=== PATIENT | female | born 2000 | race African-American/Black ===

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

== ENCOUNTER 2024-08-12 06:32 | Emergency (ER) | payer OTHER ==
--- OUTSIDE RECORDS SUMMARY | 2024-08-12 06:36 | XMS REPORT | Continuity of Care Document ---
Author Name Unknown Address [address] [facility] [address] [place] [address] [facility] Address [address] [facility] [address] [place] [address] Support Name Relationship Address Phone VENTURA CUELLAR [address] [place] [address] Unavailable DOROTHY CUELLAR Unknown [phone] Care Team Providers Care Client Relationship Consultant Name Role Phone PCP, PATIENT DOES NOT HAVE A Primary Care Physic tasha Unavailable UNKNOWN, ATTENDING Attending Clinician Unavailab HARVEY Contreras Attending Clinician Unavailable Jad Rene Attending Clinician [phone] Kiara Francois MD Attending Clinician [phone] Torrie Plasencia DO Attending Clinician [phone] Harvey Andrea MD Attending Clinician [phone] Doctor Unassigned, [place] Attending Clinician U MADHAVI Silva Attending Clinician Unavailabl e KELSEY ROBERSON Attending Clinician Unavail able Madhavi Cedeno Attending Clinician [phone] Lesvia Rowland LVN Attending Clinician [phone] SHANTANU GUILLORY Attending Clinician Unavailable Shantanu Guillory MD Attending Clinician [phone] Mil MASON MD, Terry Attending Clinician [phone] NIRU AYERS Attending Clinician Unavailable Niru Garcia Attending Clinician [phone] Kelsey Barajas Attending Clinician + Gavin Kessler DO Attending Clinician [phone] PRAVIN LLOYD Attending Clinician Valentine Osullivan Attending Clinician VALENTINE CUELLAR Attending Clinician Sylwia Costa [facility] Nurse Attending Clinician Schuyler Stuart RN, Shanta Attending Clinician UnavailTORRIE Mosley Admitting Clinician Unavailable Torrie Plasencia DO Admitting Clinician [phone] SHANTANU GUILLORY Admitting Clinician Unavailable Shantanu Guillory MD Admitting Clinician [phone] Payers Payer Name Policy Type Policy Number Effective Date Expirati on Date Source [employer] [id number] 2022 00:00:00 [employer] [id number] 2022 00:00:00 Problems Condition Name Condition Details Condition Category Status Onset Date Resolution Date Last Treatment Date Treating Clinician Comments Source Abdominal pain Abdominal pain Disease Active 10-30 00:00: 00 [facility] Obesity (BMI 30-39.9) Obesity (BMI 30-39.9) Disease Active 10-30 00:00: 00 [facility] Right hand pain Right hand pain Disease Active 07-26 00:00: 00 [facility] 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 Added automatic ally from request for surgery [id number] [facility] Other general counseling and advice for contracept brian management Other general counseling and advice for contracept brian management Disease Active 08-20 00:00: 00 [facility] Anemia, Anemia, Disease Active 08-31 00:00: 00 [facility] Family history of sickle cell anemia Family history of sickle cell anemia Disease Active 01-02 00:00: 00 [facility] Allergies, Adverse Reactions, Alerts Allergy Name Allergy Type Status Severity Reaction(s) Onset Date Inactive Date Treating Clinician Comments Source NO KNOWN ALLERGIE S Drug Class Active [facility] Social History Social Habit Start Date Stop Date Quantity Comments Source History of tobacco use Cigarette Smoker [facility] History SDOH Social Connections Get Together [facility] History SDOH Social Connections [facility] History SDOH Social Connections Membership [facility] History SDOH Social Connections Meetings [facility] Exposure to SARS-CoV-2 (event) 2022-10-20 00:00:00 2022-10-30 00:33:00 Not sure [facility] Alcohol intake 2022-10-30 00:00:00 2022-10-30 00:00:00 Current non-drinker of alcohol (finding) [facility] History SDOH Alcohol Frequency 2022-07-27 00:00:00 2022-07-27 00:00:00 3 [facility] History SDOH Alcohol Std Drinks 2022-07-27 00:00:00 2022-07-27 00:00:00 1 [facility] History SDOH Alcohol Binge 2022-07-27 00:00:00 2022-07-27 00:00:00 1 [facility] History SDOH Social Connections Phone 2022-07-27 00:00:00 2022-07-27 00:00:00 5 [facility] History SDOH Social Connections Living 2022-07-27 00:00:00 2022-07-27 00:00:00 7 [facility] History SDOH Physical Activity DPW 2022-07-27 00:00:00 2022-07-27 00:00:00 0 [facility] History SDOH Physical Activity MPS 2022-07-27 00:00:00 2022-07-27 00:00:00 0 [facility] History SDOH Financial 2022-07-27 00:00:00 2022-07-27 00:00:00 5 [facility] History SDOH Food Worry 2022-07-27 00:00:00 2022-07-27 00:00:00 1 [facility] History SDOH Food Scarcity 2022-07-27 00:00:00 2022-07-27 00:00:00 1 [facility] History SDOH Transport Med 2022-07-27 00:00:00 2022-07-27 00:00:00 2 [facility] History SDOH Transport Non-Med 2022-07-27 00:00:00 2022-07-27 00:00:00 2 [facility] Tobacco use and exposure 2022-07-27 00:00:00 2022-07-27 00:00:00 User of smokeless tobacco [facility] Sex Assigned At 2000 00:00:00 2000 00:00:00 [facility] Smoking Status Start Date Stop Date Source Smokes tobacco daily 2022-07-27 00:00:00 [facility] Never smoked tobacco [facility] Medications Ordered Medication Name Filled Medication Name Start Date Stop Date Current Medication? Ordering Clinician Indication Dosage Frequency Signature (SIG) Comments Components Source enoxaparin (LOVENOX) injection 40 mg 10-30 22:00: 00 Yes 40mg 40 mg, Subcutaneo us, DAILY, First dose on Mon10/30/22 at 1700, Until Discontinu ed, Routine [facility] piperacilli n-tazobacta m (ZOSYN) 3.375 g in NaCl 0.9% (NS) 100 mL MINI-BAG 10-30 17:15: 00 11-04 17:14 :00 No 3.375g 3.375 g, IV Piggyback, Q8H ABX, 15 doses, First dose on Mon10/30/22 at 1215, Last dose on Mon11/04/22 at 0415, Administer over 4 Hours, 100 mL
Reas on for Anti-Infec tive: Documented Infection& lt;br>Docu mented Infection Site: Abdominal< br>Duratio n of Therapy: 7 days [facility] piperacilli n-tazobacta m (ZOSYN) 3.375 g in NaCl 0.9% (NS) 100 mL MINI-BAG 10-30 09:30: 00 10-30 09:18 :00 No 3.375g 3.375 g, IV Piggyback, ONCE, 1 dose, On Mon10/30/22 at 0430, Administer over 30 Minutes, 100 mL
Reas on for Anti-Infec tive: Documented Infection< br>Documen clay Infection Site: Abdominal< br>Duratio n of Therapy: 7 days [facility] lactated ringers IV infusion 1,000 mL 10-30 08:45: 00 Yes 1000mL at 125 mL/hr, 1,000 mL, IV Infusion, CONTINUOUS , Starting on Mon10/30/22 at 0345, Until Discontinu ed, Routine [facility] ondansetron (ZOFRAN (PF)) injection 4 mg 10-30 08:34: 10 Yes 4mg 4 mg, Slow IV Push, Q6HPRN, Starting on Mon10/30/22 at 0334, Until Discontinu ed, Routine, Nausea and Vomiting (N/V) [facility] morpHINE (4 mg/mL) injection 4 mg 10-30 08:34: 07 10-31 08:33 :07 No 4mg 4 mg, Slow IV Push, Q4HPRN, Starting on Mon10/30/22 at 0334, Until 10/31/22 at 0333, Routine, Pain (scale 7-10) [facility] iopamidol (ISOVUE 370-500 mL) injection 100 mL 10-30 08:15: 00 10-30 08:15 :00 No [id number] 100mL 100 mL, Intravenou s, ONCE, 1 dose, On Mon10/30/22 at 0315, Routine [facility] NaCl 0.9% (NS) bolus infusion 1,000 mL 10-30 07:30: 00 10-30 08:57 :00 No 1000mL at 999 mL/hr, 1,000 mL, IV Infusion, ONCE, 1 dose, On Mon10/30/22 at 0230, STAT [facility] acetaminoph en (TYLENOL) tablet 650 mg 10-30 06:30: 00 10-30 06:25 :00 No 650mg 650 mg, Oral, ONCE, 1 dose, On Mon10/30/22 at 0130, GIOVANNI [facility] No known medications 1- 09:51: 45 No No known medication s [facility] amoxicillin -clavulanat e (AUGMENTIN) 875-125 mg per tablet 1 tablet 07-27 23:00: 00 08-06 13:59 :00 No 1{tbl} 1 tablet, Oral, Q12H, 20 doses, First dose on Mon07/27/22 at 1700, Last dose on Mon08/05/22 at 2000, Routine
Reason for Anti-Infec tive: Documented Infection< br>Documen clay Infection Site: Skin / Soft Tissue
Duration of Therapy: 10 days [facility] bupivacaine (preserv free) (SENSORCAIN E MPF) 0.25 % (2.5 mg/mL) injection 07-27 20:11: 00 07-27 21:08 :33 No PRN, Starting on Mon07/27/22 at 1411, Until Mon07/27/22 at 1508, Routine, Intra-op [facility] HYDROcodone -acetaminop hen (NORCO) 10-325 mg tablet 1 tablet 07-27 14:59: 06 Yes 1{tbl} 1 tablet, Oral, Q6HPRN, Starting on Mon07/27/22 at 0859, Until Discontinu ed, Routine, Pain (scale 7-10) [facility] ampicillin- sulbactam (UNASYN) 3 g in NaCl 0.9% (NS) 100 mL MINI-BAG 07-27 11:15: 00 07-27 20:49 :42 No 3g 3 g, IV Piggyback, Q6H ABX, 3 doses, First dose (after last modificati on) on Mon07/27/22 at 0515, Last dose on Mon07/27/22 at 1715, Administer over 30 Minutes, 100 mL
Reas on for Anti-Infec tive: Empiric Therapy for Suspected Infection< br>Empiric Therapy Site: Skin / Soft tissue
Duration of therapy: 72 hours [facility] morpHINE (4 mg/mL) injection 4 mg 07-27 04:03: 34 Yes 4mg 4 mg, Slow IV Push, Q4HPRN, Starting on Mon07/26/22 at 2203, Until Discontinu ed, Routine, For pain unrelieved by oral medication s, or if patient is unable to tolerate oral pain medication . [facility] traMADoL (ULTRAM) tablet 50 mg 07-27 04:03: 29 Yes 50mg 50 mg, Oral, Q6HPRN, Starting on Mon07/26/22 at 3, Until Discontinu ed, Routine, Pain (scale 4-6) [facility] acetaminoph en (TYLENOL) tablet 650 mg 07-27 04:03: 27 Yes 650mg 650 mg, Oral, Q6HPRN, Starting on Mon07/26/22 at 2202, Until Discontinu ed, Routine, Pain (scale 1-3), Pain Scale 1-3 Or Headache [facility] piperacilli n-tazobacta m (ZOSYN) 3.375 g in NaCl 0.9% (NS) 50 mL MINI-BAG 07-27 01:30: 00 07-27 01:40 :00 No 3.375g 3.375 g, IV Piggyback, ONCE, 1 dose, On Mon07/26/22 at 1930, Administer over 30 Minutes, 50 mL
Reas on for Anti-Infec tive: Documented Infection< br>Documen clay Infection Site: Skin / Soft Tissue
Duration of Therapy: Other (see Comments) [facility] HYDROcodone -acetaminop hen (NORCO 5) 5-325 mg tablet 1 tablet 07-27 01:30: 00 07-27 01:27 :00 No 1{tbl} 1 tablet, Oral, ONCE, 1 dose, On Mon07/26/22 at 1930, GIOVANNI [facility] amoxicillin -clavulanat e 875-125 mg per tablet 07-27 00:00: 00 08-07 05:59 :00 No [id number] 1{tbl} Take 1 tablet by mouth every 12 (twelve) hours for 10 days. [facility] traMADoL 50 mg tablet 07-27 00:00: 00 08-02 05:59 :00 No [id number] 50mg Take 1 tablet by mouth every 6 (six) hours as needed for Pain (scale 4-6) for up to 5 days. Indication s: acute pain [facility] HYDROcodone -acetaminop hen 10-325 mg tablet - 00:00: 00 07-31 05:59 :00 No [id number] 1{tbl} Take 1 tablet by mouth every 6 (six) hours as needed for Pain (scale 7-10) for up to 3 days. Indication s: acute pain [facility] ondansetron (ZOFRAN) 4 mg tablet 07-27 00:00: 00 07-31 05:59 :00 No [id number] 4mg Take 1 tablet by mouth every 6 (six) hours for 3 days. [facility] No known medications 07-26 13:36: 04 No No known medication s [facility] norelgestro min-ethinyl estradiol (XULANE) 150-35 mcg/24 hr patch 3-19 00:00: 00 08-20 00:00 :00 No [id number] 1{patch } Apply 1 Patch to skin weekly. [facility] Vital Signs Vital Name Observation Time Observation Value Comments S ource Systolic blood pressure 2022-10-30 12:32:00 122 mm[Hg] [facility] Diastolic blood pressure 2022-10-30 12:32:00 66 mm[Hg] [facility] Heart rate 2022-10-30 12:32:00 97 /min [facility] Body temperature 2022-10-30 12:32:00 36.67 Cristy [facility] Respiratory rate 2022-10-30 12:32:00 18 /min [facility] Oxygen saturation in Arterial blood by Pulse oximetry 2022-10-30 12:32:00 98 /min [facility] Body height 2022-10-30 09:09:00 160 cm [facility] Body weight 2022-10-30 09:09:00 79.47 kg [facility] BMI 2022-10-30 09:09:00 31.04 kg/m2 [facility] Body temperature 2022-08-11 15:50:00 36.17 Crsity [facility] Body height 2022-08-11 15:50:00 154.9 cm [facility] Body weight 2022-08-11 15:50:00 76.159 kg [facility] BMI 2022-08-11 15:50:00 31.72 kg/m2 [facility] Systolic blood pressure 2022-07-28 13:00:00 110 mm[Hg] [facility] Diastolic blood pressure 2022-07-28 13:00:00 55 mm[Hg] [facility] Heart rate 2022-07-28 13:00:00 98 /min [facility] Body temperature 2022-07-28 13:00:00 36.78 Cristy [facility] Respiratory rate 2022-07-28 13:00:00 18 /min [facility] Oxygen saturation in Arterial blood by Pulse oximetry 2022-07-28 13:00:00 100 /min [facility] Body height 2022-07-27 11:28:00 162.6 cm [facility] Body weight 2022-07-27 11:28:00 77.6 kg [facility] BMI 2022-07-27 11:28:00 29.35 kg/m2 [facility] Systolic blood pressure 2022-07-27 17:36:00 109 mm[Hg] [facility] Diastolic blood pressure 2022-07-27 17:36:00 68 mm[Hg] [facility] Heart rate 2022-07-27 17:36:00 83 /min [facility] Body temperature 2022-07-27 17:36:00 36.28 Cristy [facility] Respiratory rate 2022-07-27 17:36:00 21 /min [facility] Oxygen saturation in Arterial blood by Pulse oximetry 2022-07-27 17:36:00 99 /min [facility] Body height 2022-07-27 11:28:00 162.6 cm [facility] Body weight 2022-07-27 11:28:00 77.6 kg [facility] BMI 2022-07-27 11:28:00 29.35 kg/m2 [facility] Systolic blood pressure 2022-07-27 01:09:00 118 mm[Hg] [facility] Diastolic blood pressure 2022-07-27 01:09:00 73 mm[Hg] [facility] Heart rate 2022-07-27 01:09:00 91 /[facility] 2022-07-27 01:09:00 37.5 Cristy [facility] Respiratory rate 2022-07-27 01:09:00 18 /min [facility] Oxygen saturation in Arterial blood by Pulse oximetry 2022-07-27 01:09:00 100 /min [facility] Body height 2022-07-26 19:30:00 162.6 cm [facility] Body weight 2022-07-26 19:30:00 77.565 kg [facility] BMI 2022-07-26 19:30:00 29.35 kg/m2 [facility] Systolic blood pressure 2021-08-20 19:06:00 105 mm[Hg] [facility] Diastolic blood pressure 2021-08-20 19:06:00 60 mm[Hg] [facility] Heart rate 2021-08-20 19:06:00 69 /min [facility] Body temperature 2021-08-20 19:06:00 36.17 Cristy [facility] Respiratory rate 2021-08-20 19:06:00 16 /min [facility] Body height 2021-08-20 19:06:00 160 cm [facility] Body weight 2021-08-20 19:06:00 77.764 kg [facility] BMI 2021-08-20 19:06:00 30.37 kg/m2 [facility] Procedures Procedure Date / Time Performed Performing Clinician Source CONSENT/REFUSAL FOR DIAGNOSIS AND TREATMENT 2022-10-30 15:05:28 Doctor Unassigned, [place] [facility] CT ABDOMEN PELVIS W CONTRAST 2022-10-30 07:28:39 Jad Murillo [facility] LIPASE 2022-10-30 05:59:00 Jad Murillo [facility] COMP. METABOLIC PANEL ([id number]) 2022-10-30 05:59:00 Jad Murillo [facility] CBC WITH DIFF 2022-10-30 05:59:00 Jad Murillo [facility] URINALYSIS 2022-10-30 05:59:00 Jad Murillo [facility] POCT TEST 2022-10-30 05:58:00 Jad Murillo [facility] NOTICE OF PRIVACY PRACTICES 2022-10-30 05:24:11 Doctor Unassigned, [place] [facility] CONSENT/REFUSAL FOR DIAGNOSIS AND TREATMENT 2022-10-30 05:23:29 Doctor Unassigned, [place] [facility] AUTHORIZATION FOR RELEASE OF PHI 2022-10-14 05:01:00 Doctor Unassigned, [place] [facility] HAND DEBRIDEMENT 2022-07-27 18:59:00 Shantanu Guillory [facility] HAND DEBRIDEMENT 2022-07-27 18:59:00 Shantanu Guillory [facility] POCT TEST 2022-07-27 18:50:00 Braxton Ruiz [facility] POCT TEST 2022-07-27 18:50:00 Braxton Ruiz [facility] CREATININE 2022-07-27 05:48:00 Terry Jaeger [facility] CREATININE 2022-07-27 05:48:00 Terry Jaeger [facility] XR HAND 3+ VW RIGHT 2022-07-26 19:51:48 Niru Ayers [facility] Encounters Start Date/Time End Date/Time Encounter Type Admission Type Attending [facility] Care Department Encounter ID Source 2023-11-08 15:00:00 2023-11-08 15:00:00 Outpatient R UNKNOWN, ATTENDING [facility] [id number] [facility] 2022-12-08 15:37:57 2022-12-08 15:37:57 Outpatient [facility] [id number] Marcellus Ivy 2022-12-06 15:11:04 2022-12-06 15:11:04 Outpatient [facility] [id number] Marcellus Ivy 2022-10-30 00:24:00 2022-10-30 08:55:00 Outpatient HARVEY MERRILL [facility] [id number] [facility] 2022-10-30 00:24:00 2022-10-30 08:55:00 Emergency Lidia, Jad Francois, Kiara Plasencia, Harvey Menard [facility] 1..840.114 350.1.13.10 4.2.7.2.686 [id number] [facility] 2022-10-14 00:00:00 2022-10-14 00:00:00 Orders Only Doctor Unassigned, [place] [facility] 1..840.114 350.1.13.10 4.2.7.2.686 [id number] [facility] 2022-08-25 09:20:00 2022-08-25 09:20:00 Outpatient MADHAVI TRUONG [facility] [id number] [facility] 2022-08-22 13:15:00 2022-08-22 13:15:00 Outpatient R KELSEY ROBERSON [facility] [id number] [facility] 2022-08-22 13:15:00 2022-08-22 13:15:00 Outpatient R AKINKELSEY REDDY [facility] [id number] [facility] 2022-08-18 08:00:00 2022-08-18 08:00:00 Outpatient R [facility] [id number] [facility] 2022-08-11 09:20:00 2022-08-11 10:58:12 Outpatient MADHAVI TRUONG [facility] [id number] [facility] 2022-08-11 09:20:00 2022-08-11 10:58:12 Office Visit Lees, Madhavi [facility] 1.2.840.114 350.1.13.10 4.2.7.2.686 [id number] [facility] 2022-07-29 00:00:00 2022-07-29 00:00:00 Transition of Care Lesvia Rowland 1.2.840.114 350.1.13.10 4.2.7.2.686 [id number] [facility] 2022-07-26 20:53:00 2022-07-28 14:02:00 Inpatient X SHANTANU GUILLORY [facility] SOR [id number] [facility] 2022-07-26 20:53:00 2022-07-28 14:02:00 [facility] 1.2.840.114 350.1.13.10 4.2.7.2.686 [id number] [facility] 2022-07-27 11:18:00 2022-07-27 13:27:00 Surgery Shantanu Guillory [facility] 1.2.840.114 350.1.13.10 4.2.7.2.686 [id number] [facility] 2022-07-26 13:31:00 2022-07-26 19:39:00 Emergency X NIRU AYERS [facility] ERT [id number] [facility] 2022-07-26 13:31:00 2022-07-26 19:39:00 Emergency Niru Ayers S [facility] 1.2.840.114 350.1.13.10 4.2.7.2.686 [id number] [facility] 2021-08-20 12:45:00 2021-08-20 13:56:34 Outpatient R LIZZETTE ROBERSONILOLA [facility] [id number] [facility] 2021-08-20 12:45:00 2021-08-20 13:56:34 Office Visit Amada Kelsey C [facility] 1..840.114 350.1.13.10 4.2.7.2.686 [id number] [facility] 2021-08-20 12:45:00 2021-08-20 13:56:34 Outpatient R KELSEY ROBERSON [facility] [id number] [facility] 2021-08-20 00:00:00 2021-08-20 00:00:00 Orders Only Doctor Unassigned, [place] [facility] 1.840.114 350.1.13.10 4.2.7.2.686 [id number] [facility] 2020-10-13 00:00:00 2020-10-13 00:00:00 Patient Outreach Gavin Kessler [facility] 1.840.114 350.1.13.10 4.2.7.2.686 [id number] [facility] 2020-05-05 08:30:00 2020-05-05 08:30:00 Outpatient R PRAVIN LLOYD [facility] [id number] [facility] 2020-02-12 00:00:00 2020-02-12 00:00:00 Letter (Out) Valentine Cuellar [facility] 1.840.114 350.1.13.10 4.2.7.2.686 [id number] [facility] 2020-02-10 11:45:00 2020-02-10 11:45:00 Outpatient R VALENTINE CUELLAR [facility] [id number] [facility] 2020-02-10 11:45:00 2020-02-10 11:45:00 Outpatient R ALISA VALENTINE [facility] [id number] [facility] 2020-02-10 11:45:00 2020-02-10 11:45:00 Outpatient R VALENTINE CUELLAR [facility] [id number] [facility] 2020-01-16 15:00:00 2020-01-16 15:00:00 Outpatient R ALISA VALENTINE [facility] [id number] [facility] 2020-01-10 13:15:00 2020-01-10 13:15:00 Outpatient R KELSEY ROBERSON [facility] [id number] [facility] 2019-10-10 13:38:58 2019-10-14 10:05:09 Office Visit Valentine Cuellar [facility] 1..114 350.1.13.10 4.2.7.2.686 [id number] [facility] 2019-10-10 13:45:00 2019-10-10 13:45:00 Outpatient R ALISA VALENTINE [facility] [id number] [facility] 2019-10-10 00:00:00 2019-10-10 00:00:00 Orders Only Doctor Unassigned, [place] [facility] 1.114 350.1.13.10 4.2.7.2.686 [id number] [facility] 2019-03-11 15:13:39 2019-03-11 15:27:14 Nurse Visit Visit, Ang-Rmchp Nurse Valentine Cuellar [facility] 1..114 350.1.13.10 4.2.7.2.686 [id number] [facility] 2019-02-28 00:00:00 2019-02-28 00:00:00 Telephone Valentine Cuellar [facility] 1..114 350.1.13.10 4.2.7.2.686 [id number] [facility] 2019-02-18 00:00:00 2019-02-18 00:00:00 Nurse Triage Shanta Stuart [facility] 1.2.840.114 350.1.13.10 4.2.7.2.686 [id number] [facility] Results Test Description Test Time Test Comments Results Result Co mments Source [facility] [id number] 19:05:00* Test Item Value Reference Range Interpretation Comme nts POCT PREG (test code = 1605) Negative On board controls acceptable with C Line (test code = 3574) Yes POCT PREG LOT # (test code = 3575) [id number] POCT PREG TEST DATE ( test code = 3576) 10/22/23 Lab Interpretation (test cod e = [id number]) Normal [facility] [id number] 19:05:00* Test Item Value Reference Range Interpretation Comme nts POCT PREG (test code = 1605) Negative On board controls acceptable with C Line (test code = 3574) Yes POCT PREG LOT # (test code = 3575) [id number] POCT PREG TEST DATE ( test code = 3576) 10/22/23 Lab Interpretation (test cod e = 37823-5) [facility] Test Item Value Reference Range Interpretation Comme [facility] CREATININE (test code = 8422859233) 0.65 mg/dL 0.50-1.04 eGFR (test code = 5326761035) mL/min/1.73m2 PARISH (test code = PARISH) Association of Glomerular Filtration Rate (GFR) and Staging of Kidney Disease* + + +- +| GFR (mL/min/1.73 m2) ?| With Kidney Damage ?| ?Without Kidney Damage+ ------+ ----+ ------+| ?>90 ?| ?Stage one ?| ? Normal ?+ -+ + -+| ?60-89 ?| ?Stage two ?| ? Decreased GFR ? + + +- +| ?30-59 ?| ?Stage three ?| ? Stage three ? + + +- +| ?15-29 ?| ?Stage four ? | ? Stage four ?+ -+ + -+| ?<15 (or dialysis) ? ?| ?Stage five ? | ? Stage five ?+ -+ + -+ *Each stage assumes the associated GFR level has been in effect for at least three months. ?Stages 1 to 5, with or without kidney disease, indicate chronic kidney disease. Notes: Determination of stages one and two (with eGFR >59mL/min/1.73 m2) requires estimation of kidney damage for at least three months as defined by structural or functional abnormalities of the kidney, manifested by either:Pathological abnormalities or Markers of kidney damage (including abnormalities in the composition of the blood or urine or abnormalities in imaging tests). [facility]2023-01-04 06:21:42* Test Item Value Reference Range Interpretation Comme nts CREATININE (test code = 2574722782) 0.65 mg/dL 0.50-1.04 eGFR (test code = 2356382851) mL/min/1.73m2 PARISH (test code = PARISH) Association of Glomerular Filtration Rate (GFR) and Staging of Kidney Disease* + + +- +| GFR (mL/min/1.73 m2) ?| With Kidney Damage ?| ?Without Kidney Damage+ ------+ ----+ ------+| ?>90 ?| ?Stage one ?| ? Normal ?+ -+ + -+| ?60-89 ?| ?Stage two ?| ? Decreased GFR ? + + +- +| ?30-59 ?| ?Stage three ?| ? Stage three ? + + +- +| ?15-29 ?| ?Stage four ? | ? Stage four ?+ -+ + -+| ?<15 (or dialysis) ? ?| ?Stage five ? | ? Stage five ?+ -+ + -+ *Each stage assumes the associated GFR level has been in effect for at least three months. ?Stages 1 to 5, with or without kidney disease, indicate chronic kidney disease. Notes: Determination of stages one and two (with eGFR >59mL/min/1.73 m2) requires estimation of kidney damage for at least three months as defined by structural or functional abnormalities of the kidney, manifested by either:Pathological abnormalities or Markers of kidney damage (including abnormalities in the composition of the blood or urine or abnormalities in imaging tests). [facility]"
[2024-08-12 07:06] LABS: Absolute Basophils 0.1 K/uL (0-0.5); Absolute Eosinophils 0.1 K/uL (0-0.5); Absolute Lymphocytes (CBC) 2.3 K/uL (0.7-4.9); Absolute Monocytes 0.5 K/uL (0.1-1.3); Absolute Neutrophil 2.5 K/uL (1.8-8.0); Basophils % 1.2 % (0-1.3); Eosinophils % 2.4 % (0-4.4); Hematocrit 34.6 % (36.0-45.0); Hemoglobin 11.6 g/dL (12.0-15.0); Lymphocytes % 42.2 % (15.3-44.8); MCH 30.5 pg (27.0-35.0); MCHC 33.5 g/dL (32.0-36.0); MCV 91.1 fL (80-100); MPV 8.2 fL (7.6-11.3); Monocytes % 9.5 % (3.3-12.3); Neutrophils % 44.7 % (41.7-73.7); Nucleated Red Blood Cells % 0.1 % (0-0); Platelets 386 thou/uL (152-406)
[2024-08-12 07:24] LABS: Anion Gap 9.1 mEq/L (5.0-15.0); Potassium 3.1 mEq/L (3.5-5.1)
[2024-08-12 07:52] LABS: Specific Gravity 1.024 (1.005-1.030)
[2024-08-12 07:55] LABS: Specific Gravity 1.024 (1.005-1.030); Sqamous Epithelial <5 /HPF (None Seen); Transitional Epithelial <5 /HPF (None Seen); Urine Bacteria <20 /HPF (<20); Urine Bilirubin NEGATIVE (Negative); Urine Blood 3+ (Negative); Urine Clarity Turbid (Clear); Urine Color Light-Yellow (Yellow); Urine Culture Reflex Order NOT NEEDED; Urine Glucose NEGATIVE (Negative); Urine Ketones NEGATIVE (Negative); Urine Microscopic Reflex YN ORDER UMIC; Urine Mucus Slight /HPF (None Seen); Urine Nitrite NEGATIVE (Negative); Urine Protein NEGATIVE (Negative); Urine Urobilinogen 1+ (Normal); Urine WBC <5 /HPF (<5)
--- NOTE | 2024-08-12 08:32 | RAD REPORT ---
EXAMINATION: Transvaginal OB COMPARISON: None. HISTORY: TECHNIQUE: Real-time ultrasound was performed through the pelvis. A transvaginal scan was performed t o better visualize the intrauterine contents and adnexa. FINDINGS: The uterus is normal in size. Endometrium is thickened measuring 19 mm with no evidence of a gestatio nal sac seen. The right ovary measures 5.1 x 3.9 x 3.8 cm. Hemorrhagic cyst is present. Left ovary measures 2.8 x 1 .7 x 1.2 cm. IMPRESSION: Thickened endometrial stripe is present without gestational sac evident. This can still represent ear ly IUP. In the setting of a positive hCG level, this would indicate of unknown location. Serial hCG level measurements and follow-up pelvic sonography in 7-10 days would be recommended.
--- NOTE | 2024-08-12 09:06 | EDPHYS ---
Physician Documentation [facility] Name: Abdiel Allred Age: 24 yrs Sex: Female : 2000 Arrival Date: 08/12/2024 Time: 06:32 Bed 7 Private MD: ED Physician Rony Miller HPI: 08/12 07:30 This 24 yrs old Black Female presents to ER via Ambulatory with complaints of Vaginal rn Bleeding, Abdominal Cramping, PT states she is . 07:30 The patient presents with vaginal bleeding that is. Onset: The symptoms/episode rn began/occurred 5 day(s) ago. Modifying factors: The symptoms are alleviated by nothing, the symptoms are aggravated by nothing. Associated signs and symptoms: Pertinent positives: cramping, vaginal bleeding, Pertinent negatives: fever, hematuria, urinary frequency, vaginal discharge. Severity of symptoms: At their worst the symptoms were moderate, in the emergency department the symptoms have improved. The patient has not experienced similar symptoms in the past. Patient reports she did not know she was , last Monday started with lower abdominal cramping and heavy vaginal bleeding with clots. Thinks she passed a different appearing solid mass. Abdominal cramping has improved since that day but still cramping. No urinary symptoms. No fever or chills. Patient has only been once before and believes her blood type is AB+. Denies trauma. 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 - Infectious Disease History:: Denies. - Social history:: Smoking status: Reported history of juuling and/or vaping. - Family history:: not pertinent. - Hospitalizations: : No recent hospitalization is reported. ROS: 07:30 Constitutional: Negative for fever, chills, and weight loss, Cardiovascular: Negative rn for chest pain, palpitations, and edema, Respiratory: Negative for shortness of breath, cough, wheezing, and pleuritic chest pain, Abdomen/GI: Positive for lower abdominal cramping Back: Negative for injury and pain, : Positive for vaginal bleeding MS/Extremity: Negative for injury and deformity, Skin: Negative for injury, rash, and discoloration, Neuro: Negative for headache, weakness, numbness, tingling, and seizure, Exam: 07:30 Constitutional: This is a well developed, well nourished patient who is awake, alert, rn and in no acute distress. Cardiovascular: Regular rate and rhythm. No pulse deficits. Respiratory: No increased work of breathing, no retractions or nasal flaring. Abdomen/GI: Soft, nontender Neuro: Awake and alert, GCS 15 Vital Signs: 06:39 BP 145 / 81; Pulse 88; Resp 18 S; Pulse Ox 100% on R/A; Weight 66.22 kg; Height 4 ft. ha1 11 in. ; 07:30 Temp 97.5(TE); iw 08:26 BP 97 / 55; Pulse 81; Resp 16; Pulse Ox 100% ; Pain 4/10; ll1 08:40 BP 104 / 46; Pulse 69; ll1 09:15 BP 105 / 59; Pulse 70; Resp 16; Pulse Ox 100% on R/A; ll1 06:39 Body Mass Index 29.49 (66.22 kg, 149.86 cm) ha1 08:26 Pain Scale: Adult ll1 MDM: 06:48 Medical Screening Exam initiated sp4 09:03 Differential diagnosis: nonspecific abdominal pain, ovarian cyst, urinary tract rn infection. Data reviewed: vital signs, nurses notes, lab test result(s), radiologic studies, ultrasound, and as a result, I will discharge patient. Counseling: I had a detailed discussion with the patient and/or guardian regarding the historical points, exam findings, and any diagnostic results supporting the discharge/admit diagnosis, lab results, radiology results, the need for outpatient follow up, to return to the emergency department if symptoms worsen or persist or if there are any questions or concerns that arise at home. Response to treatment: the patient's symptoms have markedly improved after treatment, and as a result, I will discharge patient. Special discussion: I discussed with the patient/guardian in detail that at this point there is no indication for admission to the hospital. It is understood, however, that if the symptoms persist or worsen the patient needs to return immediately for re-evaluation. ED course: Patient improved, diminished abdominal cramping as well as vaginal bleeding. Patient is 5 days into this. Ultrasound shows thickened endometrium but no intrauterine identified. Also no evidence of ectopic identified. Beta-hCG is 5000 but patient states past a tissue colored mass in the midst of her blood clots, likely miscarriage at that time and hCG likely on its way down. Not having any abdominal tenderness at this time. Will discharge home with return precautions. Blood type is Rh+, does not need RhoGAM. 08/12 06:47 Order name: Abo/rh Typing; Complete Time: 09:03 sp4 08/12 06:47 Order name: Basic Metabolic Panel; Complete Time: 08:24 sp4 08/12 06:47 Order name: CBC with Diff; Complete Time: 08:24 sp4 08/12 06:47 Order name: Test, Urine; Complete Time: 08:24 sp4 08/12 06:47 Order name: Urinalysis w/ reflexes; Complete Time: 08:24 sp4 08/12 06:48 Order name: HCG-Quantitative; Complete Time: 08:24 sp4 08/12 07:23 Order name: Transvaginal OB; Complete Time: 08:38 EDMS 08/12 06:47 Order name: IV Saline Lock; Complete Time: 06:58 sp4 08/12 06:47 Order name: Labs collected and sent; Complete Time: 07:02 sp4 08/12 06:47 Order name: NPO; Complete Time: 07:02 sp4 Administered Medications: No medications were administered Disposition Summary: 08/12/24 09:05 Discharge Ordered Notes: Location: Home rn Problem: new rn Symptoms: have improved rn Condition: Stable rn Diagnosis - Threatened rn - Abnormal uterine and vaginal bleeding, unspecified rn Followup: rn - With: Private Physician - When: As needed - Reason: Recheck today's complaints, Re-evaluation by your physician Discharge Instructions: - Discharge Summary Sheet rn - Abnormal Uterine Bleeding rn - Threatened Miscarriage rn - Vaginal Bleeding During , First Trimester rn Forms: - Medication Reconciliation Form rn - Antibiotic kiln burner - Prescription Opioid Use rn - Patient Portal Instructions rn - Leadership Thank You Letter rn - Work release form ll1 Signatures: Dispatcher [employer] Rony Cifuentes MD MD rn Ayala, Heidy, RN RN ha1 Juan J Ho MD MD sp4 Corrections: (The following items were deleted from the chart) 07:23 06:48 OB Limited+US.RAD.BRZ ordered. EDMS EDMS
--- NOTE | 2024-08-12 09:06 | ER ---
Nurse's Notes [facility] Name: Abdiel Allred Age: 24 yrs Sex: Female : 2000 Arrival Date: 08/12/2024 Time: 06:32 Bed 7 Private MD: Diagnosis: Threatened ;Abnormal uterine and vaginal bleeding, unspecified Presentation: 08/12 06:39 Chief complaint: Patient states: POSSIBLE MISCARRIAGE, VAGINAL BLEEDING, AND CRAMPING. ha1 06:39 Coronavirus screen: Client denies travel out of the [place] in the last 14 days. Ebola ha1 Screen: Patient negative for fever greater than or equal to 101.5 degrees Fahrenheit, and additional compatible Ebola Virus Disease symptoms. Initial Sepsis Screen: Does the patient meet any 2 criteria? No. Patient's initial sepsis screen is negative. Does the patient have a suspected source of infection? No. Patient's initial sepsis screen is negative. Risk Assessment: Do you want to hurt yourself or someone else? Patient reports no desire to harm self or others. Onset of symptoms was August 12, 2024. 06:39 Method Of Arrival: Ambulatory ha1 06:39 Acuity: BELA 3 ha1 Triage Assessment: 06:39 General: Appears uncomfortable, Behavior is calm, cooperative. Pain: Complains of pain ha1 in pelvis Pain does not radiate. Pain currently is 8 out of 10 on a pain scale. Quality of pain is described as crampy. Neuro: Level of Consciousness is awake, alert, obeys commands, Oriented to person, place, time, situation. Cardiovascular: Capillary refill < 3 seconds Patient's skin is warm and dry. Respiratory: Airway is patent Respiratory effort is even, unlabored, Respiratory pattern is regular, symmetrical. GI: Abdomen is flat, non-distended, obese, Reports lower abdominal pain. : Reports cramping, vaginal bleeding that is with clots, moderate flow. Derm: Skin is pink, warm \T\ dry. Musculoskeletal: Circulation, motion, and sensation intact. Range of motion: intact in all extremities. 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 - Infectious Disease History:: Denies. - Social history:: Smoking status: Reported history of juuling and/or vaping. - Family history:: not pertinent. - Hospitalizations: : No recent hospitalization is reported. Screenin:39 [facility] ED Fall Risk Assessment (Adult) History of falling in the last 3 months, ha1 including since admission No falls in past 3 months (0 pts) Confusion or Disorientation No (0 pts) Intoxicated or Sedated No (0 pts) Impaired Gait No (0 pts) Mobility Assist Device Used No (0 pt) Altered Elimination No (0 pt) Score/Fall Risk Level 0 - 2 = Low Risk Oriented to surroundings, Maintained a safe environment, Educated pt \T\ family on fall prevention, incl call for assistance when getting out of bed, Hourly rounding (assess needs \T\ fall precautionary measures) done. Abuse screen: Denies threats or abuse. Denies injuries from another. Nutritional screening: No deficits noted. Tuberculosis screening: No symptoms or risk factors identified. Assessment: 07:30 General: Appears uncomfortable, Behavior is calm, cooperative, appropriate for age. ll1 Pain: Complains of pain in pelvis Quality of pain is described as aching, crampy. Neuro: No deficits noted. : Reports cramping, pain vaginal bleeding that is with clots, moderate flow. 08:26 Reassessment: No changes from previously documented assessment. Patient and/or family ll1 updated on plan of care and expected duration. Pain level reassessed. Patient is alert, oriented x 3, equal unlabored respirations, skin warm/dry/pink. Vital Signs: 06:39 BP 145 / 81; Pulse 88; Resp 18 S; Pulse Ox 100% on R/A; Weight 66.22 kg; Height 4 ft. ha1 11 in. ; 07:30 Temp 97.5(TE); iw 08:26 BP 97 / 55; Pulse 81; Resp 16; Pulse Ox 100% ; Pain 4/10; ll1 08:40 BP 104 / 46; Pulse 69; ll1 09:15 BP 105 / 59; Pulse 70; Resp 16; Pulse Ox 100% on R/A; ll1 06:39 Body Mass Index 29.49 (66.22 kg, 149.86 cm) ha1 08:26 Pain Scale: Adult ll1 ED Course: 06:36 Patient arrived in ED. gm2 06:39 Patient has correct armband on for positive identification. Bed in low position. Call ha1 light in reach. Side rails up X 1. Adult w/ patient. 06:46 Juan J Ho MD is Attending Physician. sp4 06:53 Triage completed. ha1 07:00 Attending Physician role handed off by Juan J Ho MD rn 07:00 Rony Miller MD is Attending Physician. rn 07:01 Inserted saline lock: 20 gauge in right antecubital area, using aseptic technique. mm11 Blood collected. Flushed with 10 mL NS. 07:02 Abo/rh Typing Sent. mm11 07:02 Basic Metabolic Panel Sent. mm11 07:02 CBC with Diff Sent. mm11 07:23 Transvaginal OB In Process Unspecified. EDMS 07:35 Provided Education on: ER procedures and process. ll1 07:35 Arm band placed on. ll1 07:35 Urine collected: clean catch specimen, clear, Amount Voided: 300mL. ll1 08:16 Victoriano Diez, RN is Primary Nurse. ll1 08:26 No provider procedures requiring assistance completed. ll1 08:27 Door closed. Lights dimmed. Warm blanket given. ll1 09:16 IV discontinued, intact, bleeding controlled, No redness/swelling at site. Pressure ll1 dressing applied. Administered Medications: No medications were administered Medication: 08:15 VIS not applicable for this client. ll1 Outcome: 09:05 Discharge ordered by . rn 09:16 Discharged to home ambulatory, ll1 09:16 Condition: stable 09:16 Discharge instructions given to patient, Instructed on discharge instructions, follow up and referral plans. Demonstrated understanding of instructions, follow-up care, 09:16 Patient left the ED. ll1 Signatures: Dispatcher [employer] Brandee Sher RN RN Rony Miller MD MD rn Lewis, Lynsay, RN RN ll1 Nicole Lewis RN RN ha1 Potepalov, Sergey, MD MD sp4 Marisol Wilder gm2 leila hightower mm11
[2024-08-12 09:40] VITALS: O2SAT 100
[2024-08-12 09:41] VITALS: TEMP 97.5
[2024-08-12 09:44] VITALS: BP 105/59
== END 2024-08-12 09:16 | disposition home or self-care (01) ==
LOC: ER 06:32
DX: O20.0 Threatened abortion (principal)
CPT/HCPCS: 36415; 76817; 80048; 81001; 81025; 84702; 85025; 86900; 86901; 99284

== ENCOUNTER 2024-09-01 14:44 | Emergency (ER) | payer OTHER, SELFPAY ==
--- OUTSIDE RECORDS SUMMARY | 2024-09-01 14:48 | XMS REPORT | Continuity of Care Document ---
Author Name Unknown Address [address] [place] [address] [facility] Address [address] [place] [address] Support Name Relationship Address Phone VENTURA CUELLAR [address] [place] [address] Unavailable DOROTHY CUELLAR Unknown [phone] Care Team Providers Care Historic Sites Registrar Name Role Phone PCP, PATIENT DOES NOT HAVE A Primary Care Physic tasha Unavailable [facility] [place] Attending Clinician Unavailable UNKNOWN, ATTENDING Attending Clinician Unavailab Jad Mcmillan Attending Clinician [phone] Kiara Francois MD Attending Clinician [phone] Torrie Retana DO Attending Clinician [phone] Harvey Montilla MD Attending Clinician [phone] HARVEY MONTILLA Attending Clinician Unavailable Doctor Unassigned, [place] Attending Clinician U laurelable MADHAVI LEES Attending Clinician Unavailabl e KELSEY YBARRA Attending Clinician Unavail able Madhavi Cedeno Attending Clinician [phone] Lesvia Rowland LVN Attending Clinician [phone] SHANTANU GUILLORY Attending Clinician Unavailable Shantanu Guillory MD Attending Clinician [phone] Mil MASON MD, Terry Attending Clinician [phone] NIRU AYERS Attending Clinician Unavailable Niru Garcia Attending Clinician [phone] Kelsey Barajas Attending Clinician + Gavin Kessler DO Attending Clinician PRAVIN LLOYD Attending Clinician UnavailValentine Weston Attending Clinician [phone] VALENTINE CUELLAR Attending Clinician Unavailzoila [facility] Attending Clinician Schuyler Stuart RN, Shanta Attending Clinician UnavailTorrie Cisneros DO Admitting Clinician [phone] TORRIE RETANA Admitting Clinician Unavailable SHANTANU GUILLORY Admitting Clinician Unavailable Shantanu Guillory MD Admitting Clinician [phone] Payers Payer Name Policy Type Policy Number Effective Date Expirati on Date Source [facility] [id number] 2018 00:00:00 [employer] [id number] 2022 00:00:00 Problems Condition Name Condition Details Condition Category Status Onset Date Resolution Date Last Treatment Date Treating Clinician Comments Source Abdominal pain Abdominal pain Disease Active 10-30 00:00: 00 [facility] Obesity (BMI 30-39.9) Obesity (BMI 30-39.9) Disease Active 10-30 00:00: 00 [facility] Right hand pain Right hand pain Disease Active 07-26 00:00: 00 [facility] 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 Added automatic ally from request for surgery [id number] [facility] Other general counseling and advice for contracept brian management Other general counseling and advice for contracept brian management Disease Active - 00:00: 00 [facility] Anemia, Anemia, Disease Active 08 00:00: 00 [facility] Family history of sickle cell anemia Family history of sickle cell anemia Disease Active 6 00:00: 00 [facility] Allergies, Adverse Reactions, Alerts Allergy Name Allergy Type Status Severity Reaction(s) Onset Date Inactive Date Treating Clinician Comments Source NO KNOWN ALLERGIE S Drug Class Active [facility] Social History Social Habit Start Date Stop Date Quantity Comments Source History of tobacco use Cigarette Smoker [facility] History SDOH Social Connections Get Together [facility] History SDOH Social Connections Congregation [facility] History SDOH Social Connections Membership [facility] History SDOH Social Connections Meetings [facility] Exposure to SARS-CoV-2 (event) 2022-10-20 00:00:00 2022-10-30 00:33:00 Not sure [facility] Alcohol intake 2022-10-30 00:00:00 2022-10-30 00:00:00 Current non-drinker of alcohol (finding) [facility] History SDOH Alcohol Frequency 2022-07-27 00:00:00 2022-07-27 00:00:00 3 [facility] History SDOH Alcohol Std Drinks 2022-07-27 00:00:00 2022-07-27 00:00:00 1 [facility] History SDOH Alcohol Binge 2022-07-27 00:00:00 2022-07-27 00:00:00 1 [facility] History SDOH Social Connections Phone 2022-07-27 00:00:00 2022-07-27 00:00:00 5 [facility] History SDOH Social Connections Living 2022-07-27 00:00:00 2022-07-27 00:00:00 7 [facility] History SDOH Physical Activity DPW 2022-07-27 00:00:00 2022-07-27 00:00:00 0 [facility] History SDOH Physical Activity MPS 2022-07-27 00:00:00 2022-07-27 00:00:00 0 [facility] History SDOH Financial 2022-07-27 00:00:00 2022-07-27 00:00:00 5 [facility] History SDOH Food Worry 2022-07-27 00:00:00 2022-07-27 00:00:00 1 [facility] History SDOH Food Scarcity 2022-07-27 00:00:00 2022-07-27 00:00:00 1 [facility] History SDOH Transport Med 2022-07-27 00:00:00 2022-07-27 00:00:00 2 [facility] History SDOH Transport Non-Med 2022-07-27 00:00:00 2022-07-27 00:00:00 2 [facility] Tobacco use and exposure 2022-07-27 00:00:00 2022-07-27 00:00:00 User of smokeless tobacco [facility] Sex Assigned At 2000 00:00:00 2000 00:00:00 [facility] Smoking Status Start Date Stop Date Source Smokes tobacco daily 2022-07-27 00:00:00 [facility] Never smoked tobacco [facility] Medications Ordered Medication Name Filled Medication Name Start Date Stop Date Current Medication? Ordering Clinician Indication Dosage Frequency Signature (SIG) Comments Components Source enoxaparin (LOVENOX) injection 40 mg 10-30 22:00: 00 Yes 40mg 40 mg, Subcutaneo us, DAILY, First dose on Mon10/30/22 at 1700, Until Discontinu ed, Routine [facility] piperacilli n-tazobacta m (ZOSYN) 3.375 g in [...] Abdominal< br>Duratio n of Therapy: 7 days [facility] piperacilli n-tazobacta m (ZOSYN) 3.375 g in NaCl 0.9% (NS) 100 mL MINI-BAG 10-30 09:30: 00 10-30 09:18 :00 No 3.375g 3.375 g, IV Piggyback, ONCE, 1 dose, On Mon10/30/22 at 0430, Administer over 30 Minutes, 100 mL
Reas on for Anti-Infec tive: Documented Infection< br>Documen clay Infection Site: Abdominal< br>Duratio n of Therapy: 7 days [facility] lactated ringers IV infusion 1,000 mL 10-30 08:45: 00 Yes 1000mL at 125 mL/hr, 1,000 mL, IV Infusion, CONTINUOUS , Starting on Mon10/30/22 at 0345, Until Discontinu ed, Routine [facility] ondansetron (ZOFRAN (PF)) injection 4 mg 10-30 08:34: 10 Yes 4mg 4 mg, Slow IV Push, Q6HPRN, Starting on Mon10/30/22 at 0334, Until Discontinu ed, Routine, Nausea and Vomiting (N/V) [facility] morpHINE (4 mg/mL) injection 4 mg 10-30 08:34: 07 10-31 08:33 :07 No 4mg 4 mg, Slow IV Push, Q4HPRN, Starting on Mon10/30/22 at 0334, Until Mon10/31/22 at 0333, Routine, Pain (scale 7-10) [facility] iopamidol (ISOVUE 370-500 mL) injection 100 mL 10-30 08:15: 00 10-30 08:15 :00 No [id number] 100mL 100 mL, Intravenou s, ONCE, 1 dose, On Mon10/30/22 at 0315, Routine [facility] NaCl 0.9% (NS) bolus infusion 1,000 mL 10-30 07:30: 00 10-30 08:57 :00 No 1000mL at 999 mL/hr, 1,000 mL, IV Infusion, ONCE, 1 dose, On Mon10/30/22 at 0230, STAT [facility] acetaminoph en (TYLENOL) tablet 650 mg 10-30 06:30: 00 10-30 06:25 :00 No 650mg 650 mg, Oral, ONCE, 1 dose, On Mon10/30/22 at 0130, GIOVANNI [facility] No known medications 08-11 09:51: 45 No No known medication s [facility] amoxicillin -clavulanat e (AUGMENTIN) 875-125 mg per tablet 1 tablet 07-27 23:00: 00 08-06 13:59 :00 No 1{tbl} 1 tablet, Oral, Q12H, 20 doses, First dose on Mon07/27/22 at 1700, Last dose on Mon08/05/22 at 2000, Routine
Reason for Anti-Infec tive: Documented Infection< br>Documen clay Infection Site: Skin / Soft Tissue
Duration of Therapy: 10 days [facility] bupivacaine (preserv free) (SENSORCAIN E MPF) 0.25 % (2.5 mg/mL) injection 07-27 20:11: 00 07-27 21:08 :33 No PRN, Starting on Mon07/27/22 at 1411, Until Mon07/27/22 at 1508, Routine, Intra-op [facility] HYDROcodone -acetaminop hen (NORCO) 10-325 mg tablet 1 tablet 07-27 14:59: 06 Yes 1{tbl} 1 tablet, Oral, Q6HPRN, Starting on Mon07/27/22 at 0859, Until Discontinu ed, Routine, Pain (scale 7-10) [facility] ampicillin- sulbactam (UNASYN) 3 g in NaCl [...] tissue
Duration of therapy: 72 hours [facility] morpHINE (4 mg/mL) injection 4 mg 07-27 04:03: 34 Yes 4mg 4 mg, Slow IV Push, Q4HPRN, Starting on Mon07/26/22 at 2203, Until Discontinu ed, Routine, For pain unrelieved by oral medication s, or if patient is unable to tolerate oral pain medication . [facility] traMADoL (ULTRAM) tablet 50 mg 07-27 04:03: 29 Yes 50mg 50 mg, Oral, Q6HPRN, Starting on Mon07/26/22 at 2202, Until Discontinu ed, Routine, Pain (scale 4-6) [facility] acetaminoph en (TYLENOL) tablet 650 mg 07-27 04:03: 27 Yes 650mg 650 mg, Oral, Q6HPRN, Starting on Mon07/26/22 at 2202, Until Discontinu ed, Routine, Pain (scale 1-3), Pain Scale 1-3 Or Headache [facility] piperacilli n-tazobacta m (ZOSYN) 3.375 g in NaCl 0.9% (NS) 50 mL MINI-BAG 07-27 01:30: 00 07-27 01:40 :00 No 3.375g 3.375 g, IV Piggyback, ONCE, 1 dose, On Mon07/26/22 at 1930, Administer over 30 Minutes, 50 mL
Reas on for Anti-Infec tive: Documented Infection< br>Documen clay Infection Site: Skin / Soft Tissue
Duration of Therapy: Other (see Comments) [facility] HYDROcodone -acetaminop hen (NORCO 5) 5-325 mg tablet 1 tablet 07-27 01:30: 00 07-27 01:27 :00 No 1{tbl} 1 tablet, Oral, ONCE, 1 dose, On Mon07/26/22 at 1930, GIOVANNI [facility] amoxicillin -clavulanat e 875-125 mg per tablet 07-27 00:00: 00 08-07 05:59 :00 No [id number] 1{tbl} Take 1 tablet by mouth every 12 (twelve) hours for 10 days. [facility] traMADoL 50 mg tablet - 00:00: 00 08-02 05:59 :00 No [id number] 50mg Take 1 tablet by mouth every 6 (six) hours as needed for Pain (scale 4-6) for up to 5 days. Indication s: acute pain [facility] HYDROcodone -acetaminop hen 10-325 mg tablet 07-27 00:00: 00 07-31 05:59 :00 No [id number] 1{tbl} Take 1 tablet by mouth every 6 (six) hours as needed for Pain (scale 7-10) for up to 3 days. Indication s: acute pain [facility] ondansetron (ZOFRAN) 4 mg tablet 07-27 00:00: 00 07-31 05:59 :00 No [id number] 4mg Take 1 tablet by mouth every 6 (six) hours for 3 days. [facility] No known medications 07-26 13:36: 04 No No known medication s [facility] norelgestro min-ethinyl estradiol (XULANE) 150-35 mcg/24 hr patch 3-19 00:00: 00 08-20 00:00 :00 No [id number] 1{patch } Apply 1 Patch to skin weekly. [facility] Vital Signs Vital Name Observation Time Observation Value Comments S federico Systolic blood pressure 2022-10-30 12:32:00 122 mm[Hg] [facility] Diastolic blood pressure 2022-10-30 12:32:00 66 mm[Hg] [facility] Heart rate 2022-10-30 12:32:00 97 /min [facility] Body temperature 2022-10-30 12:32:00 36.67 Cristy [facility] Respiratory rate 2022-10-30 12:32:00 18 /min [facility] Oxygen saturation in Arterial blood by Pulse oximetry 2022-10-30 12:32:00 98 /min [facility] Body height 2022-10-30 09:09:00 160 cm [facility] Body weight 2022-10-30 09:09:00 79.47 kg [facility] BMI 2022-10-30 09:09:00 31.04 kg/m2 [facility] Body temperature 2022-08-11 15:50:00 36.17 Cristy [facility] Body height 2022-08-11 15:50:00 154.9 cm [facility] Body weight 2022-08-11 15:50:00 76.159 kg [facility] BMI 2022-08-11 15:50:00 31.72 kg/m2 [facility] Systolic blood pressure 2022-07-28 13:00:00 110 mm[Hg] [facility] Diastolic blood pressure 2022-07-28 13:00:00 55 mm[Hg] [facility] Heart rate 2022-07-28 13:00:00 98 /min [facility] Body temperature 2022-07-28 13:00:00 36.78 Cristy [facility] Respiratory rate 2022-07-28 13:00:00 18 /min [facility] Oxygen saturation in Arterial blood by Pulse oximetry 2022-07-28 13:00:00 100 /min [facility] Body height 2022-07-27 11:28:00 162.6 cm [facility] Body weight 2022-07-27 11:28:00 77.6 kg [facility] BMI 2022-07-27 11:28:00 29.35 kg/m2 [facility] Systolic blood pressure 2022-07-27 17:36:00 109 mm[Hg] [facility] Diastolic blood pressure 2022-07-27 17:36:00 68 mm[Hg] [facility] Heart rate 2022-07-27 17:36:00 83 /min [facility] Body temperature 2022-07-27 17:36:00 36.28 Cristy [facility] Respiratory rate 2022-07-27 17:36:00 21 /min [facility] Oxygen saturation in Arterial blood by Pulse oximetry 2022-07-27 17:36:00 99 /min [facility] Body height 2022-07-27 11:28:00 162.6 cm [facility] Body weight 2022-07-27 11:28:00 77.6 kg [facility] BMI 2022-07-27 11:28:00 29.35 kg/m2 [facility] Systolic blood pressure 2022-07-27 01:09:00 118 mm[Hg] [facility] Diastolic blood pressure 2022-07-27 01:09:00 73 mm[Hg] [facility] Heart rate 2022-07-27 01:09:00 91 /min [facility] Body temperature 2022-07-27 01:09:00 37.5 Cristy [facility] Respiratory rate 2022-07-27 01:09:00 18 /min [facility] Oxygen saturation in Arterial blood by Pulse oximetry 2022-07-27 01:09:00 100 /min [facility] Body height 2022-07-26 19:30:00 162.6 cm [facility] Body weight 2022-07-26 19:30:00 77.565 kg [facility] BMI 2022-07-26 19:30:00 29.35 kg/m2 [facility] Systolic blood pressure 2021-08-20 19:06:00 105 mm[Hg] [facility] Diastolic blood pressure 2021-08-20 19:06:00 60 mm[Hg] [facility] Heart rate 2021-08-20 19:06:00 69 /min [facility] Body temperature 2021-08-20 19:06:00 36.17 Cristy [facility] Respiratory rate 2021-08-20 19:06:00 16 /min [facility] Body height 2021-08-20 19:06:00 160 cm [facility] Body weight 2021-08-20 19:06:00 77.764 kg [facility] BMI 2021-08-20 19:06:00 30.37 kg/m2 [facility] Procedures Procedure Date / Time Performed Performing Clinician Source CONSENT/REFUSAL FOR DIAGNOSIS AND TREATMENT 2022-10-30 15:05:28 Doctor Unassigned, [place] [facility] CT ABDOMEN PELVIS W CONTRAST 2022-10-30 07:28:39 Jad Murillo [facility] LIPASE 2022-10-30 05:59:00 Jad Murillo [facility] COMP. METABOLIC PANEL ([id number]) 2022-10-30 05:59:00 Jad Murillo [facility] CBC WITH DIFF 2022-10-30 05:59:00 Jad Murillo [facility] URINALYSIS 2022-10-30 05:59:00 Jad Murillo [facility] POCT TEST 2022-10-30 05:58:00 Jad Murillo [facility] NOTICE OF PRIVACY PRACTICES 2022-10-30 05:24:11 Doctor Unassigned, [place] [facility] CONSENT/REFUSAL FOR DIAGNOSIS AND TREATMENT 2022-10-30 05:23:29 Doctor Unassigned, [place] [facility] AUTHORIZATION FOR RELEASE OF PHI 2022-10-14 05:01:00 Doctor Unassigned, [place] [facility] HAND DEBRIDEMENT 2022-07-27 18:59:00 Shantanu Guillory [facility] HAND DEBRIDEMENT 2022-07-27 18:59:00 Shantanu Guillory [facility] POCT TEST 2022-07-27 18:50:00 Braxton Ruiz [facility] POCT TEST 2022-07-27 18:50:00 Braxton Ruiz [facility] CREATININE 2022-07-27 05:48:00 Terry Jaeger [facility] CREATININE 2022-07-27 05:48:00 Terry Jaeger [facility] XR HAND 3+ VW RIGHT 2022-07-26 19:51:48 Niru Ayers [facility] Encounters Start Date/Time End Date/Time Encounter Type Admission Type Attending Clinicians Care Facility Care Department Encounter ID Source 2024-08-27 13:00:00 2024-08-27 13:00:00 Outpatient STEW COLVIN [facility] [id number] [facility] 2023-11-08 15:00:00 2023-11-08 15:00:00 Outpatient R YOSEF, [place] [facility] [id number] [facility] 2022-12-08 15:37:57 2022-12-08 15:37:57 Outpatient SFA [facility] [id number] Marcellus Ivy 2022-12-06 15:11:04 2022-12-06 15:11:04 Outpatient [facility] [id number] Marcellus Ivy 2022-10-30 00:24:00 2022-10-30 08:55:00 Emergency Lidia, Jad Francois, Kiara Retana, Harvey Menard [facility] [id number] 350.1.13.10 4.2.7.2.686 [id number] [facility] 2022-10-30 00:24:00 2022-10-30 08:55:00 Outpatient HARVEY [facility] [id number] [facility] 2022-10-14 00:00:00 2022-10-14 00:00:00 Orders Only Doctor Unassigned, [place] [facility] [id number] 350.1.13.10 4.2.7.2.686 [id number] [facility] 2022-08-25 09:20:00 2022-08-25 09:20:00 Outpatient R MADHAVI LEES [facility] [id number] [facility] 2022-08-22 13:15:00 2022-08-22 13:15:00 Outpatient R KELSEY YBARRA [facility] [id number] [facility] 2022-08-22 13:15:00 2022-08-22 13:15:00 Outpatient R KELSEY YBARRA [facility] [id number] [facility] 2022-08-18 08:00:00 2022-08-18 08:00:00 Outpatient R [facility] [id number] [facility] 2022-08-11 09:20:00 2022-08-11 10:58:12 Outpatient R MADHAVI LEES [facility] [id number] [facility] 2022-08-11 09:20:00 2022-08-11 10:58:12 Office Visit Keshav Leesw [facility] 1.2840.114 350.1.13.10 4.2.7.2.686 [id number] [facility] 2022-07-29 00:00:00 2022-07-29 00:00:00 Transition of Care Lesvia Rowland [facility] 1.2.840.114 350.1.13.10 4.2.7.2.686 [id number] [facility] 2022-07-26 20:53:00 2022-07-28 14:02:00 Inpatient X SHANTANU GUILLORY [facility] SOR [id number] [facility] 2022-07-26 20:53:00 2022-07-28 14:02:00 Hospital Encounter Shantanu Guillory [facility] 1.2840.114 350.1.13.10 4.2.7.2.686 [id number] [facility] 2022-07-27 11:18:00 2022-07-27 13:27:00 Surgery Shantanu Guillory [facility] 1.2840.114 350.1.13.10 4.2.7.2.686 [id number] [facility] 2022-07-26 13:31:00 2022-07-26 19:39:00 Emergency X NIRU AYERS [facility] ERT [id number] [facility] 2022-07-26 13:31:00 2022-07-26 19:39:00 Emergency Niru Ayers [facility] 1.0.114 350.1.13.10 4.2.7.2.686 [id number] [facility] 2021-08-20 12:45:00 2021-08-20 13:56:34 Outpatient R KELSEY YBARRA [facility] [id number] [facility] 2021-08-20 12:45:00 2021-08-20 13:56:34 Office Visit Kelsey Ybarra [facility] 1.0.114 350.1.13.10 4.2.7.2.686 [id number] [facility] 2021-08-20 12:45:00 2021-08-20 13:56:34 Outpatient R KELSEY YBARRA [facility] [id number] [facility] 2021-08-20 00:00:00 2021-08-20 00:00:00 Orders Only Doctor Unassigned, [place] [facility] 1.0.114 350.1.13.10 4.2.7.2.686 [id number] [facility] 2020-10-13 00:00:00 2020-10-13 00:00:00 Patient Outreach Gavin Kessler [facility] 1.114 350.1.13.10 4.2.7.2.686 [id number] [facility] 2020-05-05 08:30:00 2020-05-05 08:30:00 Outpatient R PRAVIN LLOYD [facility] [id number] [facility] 2020-02-12 00:00:00 2020-02-12 00:00:00 Letter (Out) Valentine Cuellar [facility] 1..114 350.1.13.10 4.2.7.2.686 [id number] [facility] 2020-02-10 11:45:00 2020-02-10 11:45:00 Outpatient R ALISAVALENTINE [facility] [id number] [facility] 2020-02-10 11:45:00 2020-02-10 11:45:00 Outpatient R ALISA VALENTINE [facility] [id number] [facility] 2020-02-10 11:45:00 2020-02-10 11:45:00 Outpatient R ALISA VALENTINE [facility] [id number] [facility] 2020-01-16 15:00:00 2020-01-16 15:00:00 Outpatient R ALISA VALENTINE [facility] [id number] [facility] 2020-01-10 13:15:00 2020-01-10 13:15:00 Outpatient R JYOTIJERRYKELSEY [facility] [id number] [facility] 2019-10-10 13:38:58 2019-10-14 10:05:09 Office Visit Valentine Cuellar [facility] VP [facility]NAL [facility]ILD [facility] 1.840.114 350.1.13.10 4.2.7.2.686 [id number] [facility] 2019-10-10 13:45:00 2019-10-10 13:45:00 Outpatient R ALISA VALENTINE [facility] [id number] [facility] 2019-10-10 00:00:00 2019-10-10 00:00:00 Orders Only Doctor Unassigned, [place] [facility] 1.84.114 350.1.13.10 4.2.7.2.686 [id number] [facility] 2019-03-11 15:13:39 2019-03-11 15:27:14 Nurse Visit Visit, Ang-Rmchp Nurse Valentine Cuellar [facility] VP CLINICAL RESEARCH [facility]ILD [facility] 1..840.114 350.1.13.10 4.2.7.2.686 [id number] [facility] 2019-02-28 00:00:00 2019-02-28 00:00:00 Telephone AlisaValentine Savana [facility] VP [facility] 1.2.840.114 350.1.13.10 4.2.7.2.686 [id number] [facility] 2019-02-18 00:00:00 2019-02-18 00:00:00 Nurse Triage ChagoShanta clay [facility] 1.2.840.114 350.1.13.10 4.2.7.2.686 [id number] [facility] Results Test Description Test Time Test Comments Results Result Co mments Source General acute hospital [id number] 19:05:00* Test Item Value Reference Range Interpretation Comme nts POCT PREG (test code = 1605) Negative On board controls acceptable with C Line (test code = 3574) Yes POCT PREG LOT # (test code = 3575) [id number] POCT PREG TEST DATE ( test code = 3576) 10/22/23 Lab Interpretation (test cod e = 67112-3) Normal [facility] acute hospital [id number] 19:05:00* Test Item Value Reference Range Interpretation Comme nts POCT PREG (test code = 1605) Negative On board controls acceptable with C Line (test code = 3574) Yes POCT PREG LOT # (test code = 3575) [id number] POCT PREG TEST DATE ( test code = 3576) 10/22/23 Lab Interpretation (test cod e = 08711-7) [facility] Test Item Value Reference Range Interpretation Comme nts CREATININE (test code = 3993224495) 0.65 mg/dL 0.50-1.04 eGFR (test code = 4783742703) mL/min/1.73m2 PARISH (test code = PARISH) Association [...] or urine or abnormalities in imaging tests). [facility]2023-01-04 06:21:42* Test Item Value Reference Range Interpretation Comme nts CREATININE (test code = 5701424170) 0.65 mg/dL 0.50-1.04 eGFR (test code = 1913303853) mL/min/1.73m2 PARISH (test code = PARISH) Association [...] or urine or abnormalities in imaging tests). [facility]"
[2024-09-01] MEDS ORDERED: ONDANSETRON 4 MG (ODT) TAB ONE (15:40)
--- NOTE | 2024-09-01 16:34 | ER ---
Nurse's Notes [facility] Name: Abdiel Allred Age: 24 yrs Sex: Female : 2000 Arrival Date: 09/01/2024 Time: 14:44 Bed 9 Private MD: Diagnosis: Encounter for test, result unknown Presentation: 09/01 15:22 Chief complaint: Patient states: nausea x 1 week. Pt believes she may be . + ss UPT at home x 2. Coronavirus screen: Client denies travel out of the [place] in the last 14 days. Ebola Screen: Patient denies exposure to infectious person. Patient denies travel to an Ebola-affected area in the 21 days before illness onset. Initial Sepsis Screen: Does the patient meet any 2 criteria? No. Patient's initial sepsis screen is negative. Does the patient have a suspected source of infection? No. Patient's initial sepsis screen is negative. Risk Assessment: Do you want to hurt yourself or someone else? Patient reports no desire to harm self or others. Onset of symptoms was August 25, 2024. 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 - Infectious Disease History:: Denies. - Social history:: Smoking status: Reported history of juuling and/or vaping. Screenin:34 [facility] ED Fall Risk Assessment (Adult) History of falling in the last 3 months, ph including since admission No falls in past 3 months (0 pts) Confusion or Disorientation No (0 pts) Intoxicated or Sedated No (0 pts) Impaired Gait No (0 pts) Mobility Assist Device Used No (0 pt) Altered Elimination No (0 pt) Score/Fall Risk Level 0 - 2 = Low Risk Oriented to surroundings, Maintained a safe environment. Abuse screen: Denies threats or abuse. Denies injuries from another. Nutritional screening: No deficits noted. Tuberculosis screening: No symptoms or risk factors identified. Assessment: 16:34 General: Appears in no apparent distress. Behavior is calm, cooperative. Pain: Denies ph pain. Neuro: Level of Consciousness is awake, alert, Oriented to person, place, time, situation. Cardiovascular: Capillary refill < 3 seconds in bilateral fingers Patient's skin is warm and dry. Respiratory: Airway is patent Respiratory effort is even, unlabored. GI: Abdomen is non-distended, Reports nausea, vomiting. Derm: Skin is pink, warm \T\ dry. Vital Signs: 15:22 BP 115 / 92; Pulse 89; Resp 14; Temp 97.6(TE); Pulse Ox 100% ; Weight 65.77 kg; Height ss 4 ft. 11 in. ; Pain 0/10; 15:22 Body Mass Index 29.29 (65.77 kg, 149.86 cm) ss 15:22 Pain Scale: Adult ss ED Course: 14:47 Patient arrived in ED. ra3 14:58 Mary Souza PA-C [facility]. sb4 14:58 Rony Miller MD is Attending Physician. sb4 15:24 Triage completed. ss 15:24 Arm band placed on right wrist. ss 15:43 Mily Smith, RN is Primary Nurse. ss 16:00 Missed attempt(s): 22 gauge in right antecubital area. Bleeding controlled, band aid ph applied, catheter tip intact. Missed attempt(s): 24 gauge in right antecubital area. Bleeding controlled, band aid applied, catheter tip intact. 16:35 Patient has correct armband on for positive identification. ph 16:35 No provider procedures requiring assistance completed. Patient did not have IV access ph during this emergency room visit. Administered Medications: 16:01 Drug: Ondansetron Oral Disintegrating Tablet Oral Disintegrating Tablet 4 mg PO once ss Route: PO; 16:30 Follow up: Response: No adverse reaction ss Medication: 16:35 VIS not applicable for this client. ph Outcome: 16:33 Discharge ordered by . sb4 16:44 Discharged to home ambulatory, ph 16:44 Condition: good 16:44 Discharge instructions given to patient, Instructed on discharge instructions, follow up and referral plans. Demonstrated understanding of instructions, follow-up care, 16:45 Patient left the ED. ph Signatures: Mily mSith RN RN Jeannette Puentes RN RN Mary Souza PA-C PA-C sb4 [place]cal[place], Susan ra3
--- NOTE | 2024-09-01 16:34 | EDPHYS ---
Physician Documentation [facility] Name: Abdiel Allred Age: 24 yrs Sex: Female : 2000 Arrival Date: 09/01/2024 Time: 14:44 Bed 9 Private MD: ED Physician Rony Miller HPI: 09/01 17:23 This 24 yrs old Black Female presents to ER via Ambulatory with complaints of sb4 Nausea/Vomiting. 17:23 Patient is a G3, P1 healthy female that presents with complaints of nausea and vomiting sb4 for 1 week. She thinks that she may be . She states that she took 3 test at home, 2 were positive and 1 was negative. She is wanting verification. She did have a miscarriage 3 weeks ago. States her last menstrual period was in May. Denies any abdominal cramping or vaginal bleeding. 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 - Infectious Disease History:: Denies. - Social history:: Smoking status: Reported history of juuling and/or vaping. ROS: 17:23 Constitutional: Negative for fever, chills, and weight loss, sb4 17:23 Abdomen/GI: Positive for nausea and vomiting, 17:23 All other systems are negative, Exam: 17:23 Constitutional: This is a well developed, well nourished patient who is awake, alert, sb4 and in no acute distress. Head/Face: Normocephalic, atraumatic. Eyes: Extra-ocular motions intact. Periorbital areas with no swelling, redness, or edema. ENT: Mucous membranes moist. Respiratory: No increased work of breathing, no retractions or nasal flaring. Skin: Warm, dry with normal turgor. Normal color with no rashes, no lesions, and no evidence of cellulitis. Vital Signs: 15:22 BP 115 / 92; Pulse 89; Resp 14; Temp 97.6(TE); Pulse Ox 100% ; Weight 65.77 kg; Height ss 4 ft. 11 in. ; Pain 0/10; 15:22 Body Mass Index 29.29 (65.77 kg, 149.86 cm) 15:22 Pain Scale: Adult ss MDM: 15:14 Medical Screening Exam initiated sb4 17:23 Data reviewed: vital signs, nurses notes, and as a result, I will discharge patient. sb4 Counseling: I had a detailed discussion with the patient and/or guardian regarding the need for outpatient follow up, an OB/Gyne specialist. ED course: Quantitative hCG was ordered but patient eloped prior to lab being obtained. Administered Medications: 16:01 Drug: Ondansetron Oral Disintegrating Tablet Oral Disintegrating Tablet 4 mg PO once ss Route: PO; 16:30 Follow up: Response: No adverse reaction ss Disposition: 09/02 09:06 Co-signature as Attending Physician, Rony Miller MD I reviewed the patient's care rn provided by the Advanced Practice Provider and agree with the diagnosis and treatment plan. Disposition Summary: 09/01/24 16:33 Discharge Ordered Notes: Location: Home sb4 Problem: new sb4 Symptoms: are unchanged sb4 Condition: Stable sb4 Diagnosis - Encounter for test, result unknown sb4 Followup: sb4 - With: Private Physician - When: As needed - Reason: Recheck today's complaints, Re-evaluation by your physician Forms: - Medication Reconciliation Form sb4 - Antibiotic Education sb4 - Prescription Opioid Use sb4 - Patient Portal Instructions sb4 - Leadership Thank You Letter sb4 Signatures: Dispatcher [employer] Rony Cifuentes MD MD rn Blanchard, Shelby, RN RN ss Brown, Sophia, PA-C PA-C sb4
[2024-09-01 16:48] VITALS: BP 115/92; TEMP 97.6; O2SAT 100
== END 2024-09-01 16:45 | disposition home or self-care (01) ==
LOC: ER 14:44
DX: Z32.00 Encounter for pregnancy test, result unknown (principal)
CPT/HCPCS: 99283; Q0162

== ENCOUNTER 2024-10-14 06:18 | Emergency (ER) | payer SELFPAY ==
--- OUTSIDE RECORDS SUMMARY | 2024-10-14 06:22 | XMS REPORT | Continuity of Care Document ---
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 Role Phone PCP, PATIENT DOES NOT HAVE A Primary Care Physic tasha Unavailable [facility] [place] Attending Clinician Unavailable UNKNOWN, ATTENDING Attending Clinician Unavailab Jad Mcmillan Attending Clinician [phone] Kiara Francois MD Attending Clinician [phone] Torrie Retana DO Attending Clinician [phone] Harvey Montilla MD Attending Clinician [phone] HARVEY MONTILLA Attending Clinician Unavailable Doctor Unassigned, Stuart Attending Clinician U navailable MADHAVI LEES Attending Clinician Unavailabl e KELSEY YBARRA Attending Clinician Unavail able Madhavi Cedeno Attending Clinician [phone] Lesvia Rowland LVN Attending Clinician [phone] SHANTANU GUILLORY Attending Clinician Unavailable Shantanu Guillory MD Attending Clinician [phone] Mil MASON MD, Terry Attending Clinician [phone] NIRU AYERS Attending Clinician Unavailable Niru Garcia Attending Clinician [phone] Kelsey Barajas Attending Clinician + Gavin Kessler DO Attending Clinician PRAVIN LLOYD Attending Clinician Valentine Osullivan Attending Clinician VALENTINE CUELLAR Attending Clinician [facility]zoila [facility] Attending Clinician Schuyler Stuart RN, Shanta Attending Clinician UnavailTorrie Cisneros DO Admitting Clinician [phone] TORRIE RETANA Admitting Clinician Unavailable SHANTANU GUILLORY Admitting Clinician Unavailable Shantanu Guillory MD Admitting Clinician Payers Payer Name Policy Type Policy Number Effective Date Expirati on Date Source [facility] [id number] 2018 00:00:00 [employer] [id number] 2022 00:00:00 Problems Condition Name Condition Details Condition Category Status Onset Date Resolution Date Last Treatment Date Treating Clinician Comments Source Abdominal pain Abdominal pain Disease Active 10-30 00:00: 00 [facility] Obesity (BMI 30-39.9) Obesity (BMI 30-39.9) Disease Active 10-30 00:00: 00 [facility] Right hand pain Right hand pain Disease Active 07-26 00:00: 00 [facility] 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 Added automatic ally from request for surgery [id number] [facility] Other general counseling and advice for contracept brian management Other general counseling and advice for contracept brian management Disease Active 08-20 00:00: 00 [facility] Anemia, Anemia, Disease Active 08-31 00:00: 00 [facility] Family history of sickle cell anemia Family history of sickle cell anemia Disease Active 6 00:00: 00 [facility] Allergies, Adverse Reactions, Alerts Allergy Name Allergy Type Status Severity Reaction(s) Onset Date Inactive Date Treating Clinician Comments Source NO KNOWN ALLERGIE S Drug Class Active [facility] Social History Social Habit Start Date Stop Date Quantity Comments Source History of tobacco use Cigarette Smoker [facility] History SDOH Social Connections Get Together [facility] History SDOH Social Connections [facility]ctions Membership [facility] History SDOH Social Connections Meetings [facility] Exposure to SARS-CoV-2 (event) 2022-10-20 00:00:00 2022-10-30 00:33:00 Not sure [facility] Alcohol intake 2022-10-30 00:00:00 2022-10-30 00:00:00 Current non-drinker of alcohol (finding) [facility] History SDOH Alcohol Frequency 2022-07-27 00:00:00 2022-07-27 00:00:00 3 [facility] History SDOH Alcohol Std Drinks 2022-07-27 00:00:00 2022-07-27 00:00:00 1 [facility] History SDOH Alcohol Binge 2022-07-27 00:00:00 2022-07-27 00:00:00 1 [facility] History SDOH Social Connections Phone 2022-07-27 00:00:00 2022-07-27 00:00:00 5 [facility] History SDOH Social Connections Living 2022-07-27 00:00:00 2022-07-27 00:00:00 7 [facility] History SDOH Physical Activity DPW 2022-07-27 00:00:00 2022-07-27 00:00:00 0 [facility] History SDOH Physical Activity MPS 2022-07-27 00:00:00 2022-07-27 00:00:00 0 [facility] History SDOH Financial 2022-07-27 00:00:00 2022-07-27 00:00:00 5 [facility] History SDOH Food Worry 2022-07-27 00:00:00 2022-07-27 00:00:00 1 [facility] History SDOH Food Scarcity 2022-07-27 00:00:00 2022-07-27 00:00:00 1 [facility] History SDOH Transport Med 2022-07-27 00:00:00 2022-07-27 00:00:00 2 [facility] History SDOH Transport Non-Med 2022-07-27 00:00:00 2022-07-27 00:00:00 2 [facility] Tobacco use and exposure 2022-07-27 00:00:00 2022-07-27 00:00:00 User of smokeless tobacco [facility] Sex Assigned At 2000 00:00:00 2000 00:00:00 [facility] Smoking Status Start Date Stop Date Source Smokes tobacco daily 2022-07-27 00:00:00 [facility] Never smoked tobacco [facility] Medications Ordered Medication Name Filled Medication Name Start Date Stop Date Current Medication? Ordering Clinician Indication Dosage Frequency Signature (SIG) Comments Components Source enoxaparin (LOVENOX) injection 40 mg 10-30 22:00: 00 Yes 40mg 40 mg, Subcutaneo us, DAILY, First dose on Mon10/30/22 at 1700, Until Discontinu ed, Routine [facility] piperacilli n-tazobacta m (ZOSYN) 3.375 g [...] Abdominal< br>Duratio n of Therapy: 7 days [facility] piperacilli n-tazobacta m (ZOSYN) 3.375 g in NaCl 0.9% (NS) 100 mL MINI-BAG 10-30 09:30: 00 10-30 09:18 :00 No 3.375g 3.375 g, IV Piggyback, ONCE, 1 dose, On Mon10/30/22 at 0430, Administer over 30 Minutes, 100 mL
Reas on for Anti-Infec tive: Documented Infection< br>Documen clay Infection Site: Abdominal< br>Duratio n of Therapy: 7 days [facility] lactated ringers IV infusion 1,000 mL 10-30 08:45: 00 Yes 1000mL at 125 mL/hr, 1,000 mL, IV Infusion, CONTINUOUS , Starting on Mon10/30/22 at 0345, Until Discontinu ed, Routine [facility] ondansetron (ZOFRAN (PF)) injection 4 mg 10-30 08:34: 10 Yes 4mg 4 mg, Slow IV Push, Q6HPRN, Starting on Mon10/30/22 at 0334, Until Discontinu ed, Routine, Nausea and Vomiting (N/V) [facility] morpHINE (4 mg/mL) injection 4 mg 10-30 08:34: 07 10-31 08:33 :07 No 4mg 4 mg, Slow IV Push, Q4HPRN, Starting on Mon10/30/22 at 0334, Until Mon10/31/22 at 0333, Routine, Pain (scale 7-10) [facility] iopamidol (ISOVUE 370-500 mL) injection 100 mL 10-30 08:15: 00 10-30 08:15 :00 No [id number] 100mL 100 mL, Intravenou s, ONCE, 1 dose, On Mon10/30/22 at 0315, Routine [facility] NaCl 0.9% (NS) bolus infusion 1,000 mL 10-30 07:30: 00 10-30 08:57 :00 No 1000mL at 999 mL/hr, 1,000 mL, IV Infusion, ONCE, 1 dose, On Mon10/30/22 at 0230, STAT [facility] acetaminoph en (TYLENOL) tablet 650 mg 10-30 06:30: 00 10-30 06:25 :00 No 650mg 650 mg, Oral, ONCE, 1 dose, On Mon10/30/22 at 0130, GIOVANNI [facility] No known medications 08-11 09:51: 45 No No known medication s [facility] amoxicillin -clavulanat e (AUGMENTIN) 875-125 mg per tablet 1 tablet 07-27 23:00: 00 08-06 13:59 :00 No 1{tbl} 1 tablet, Oral, Q12H, 20 doses, First dose on Mon07/27/22 at 1700, Last dose on Mon08/05/22 at 2000, Routine
Reason for Anti-Infec tive: Documented Infection< br>Documen clay Infection Site: Skin / Soft Tissue
Duration of Therapy: 10 days [facility] bupivacaine (preserv free) (SENSORCAIN E MPF) 0.25 % (2.5 mg/mL) injection 07-27 20:11: 00 07-27 21:08 :33 No PRN, Starting on Mon07/27/22 at 1411, Until Mon07/27/22 at 1508, Routine, Intra-op [facility] HYDROcodone -acetaminop hen (NORCO) 10-325 mg tablet 1 tablet 07-27 14:59: 06 Yes 1{tbl} 1 tablet, Oral, Q6HPRN, Starting on Mon07/27/22 at 0859, Until Discontinu ed, Routine, Pain (scale 7-10) [facility] ampicillin- sulbactam (UNASYN) 3 g in [...] tissue
Duration of therapy: 72 hours [facility] morpHINE (4 mg/mL) injection 4 mg 07-27 04:03: 34 Yes 4mg 4 mg, Slow IV Push, Q4HPRN, Starting on Mon07/26/22 at 2203, Until Discontinu ed, Routine, For pain unrelieved by oral medication s, or if patient is unable to tolerate oral pain medication . [facility] traMADoL (ULTRAM) tablet 50 mg 07-27 04:03: 29 Yes 50mg 50 mg, Oral, Q6HPRN, Starting on Mon07/26/22 at 2202, Until Discontinu ed, Routine, Pain (scale 4-6) [facility] acetaminoph en (TYLENOL) tablet 650 mg 07-27 04:03: 27 Yes 650mg 650 mg, Oral, Q6HPRN, Starting on Mon07/26/22 at 2202, Until Discontinu ed, Routine, Pain (scale 1-3), Pain Scale 1-3 Or Headache [facility] piperacilli n-tazobacta m (ZOSYN) 3.375 g in NaCl 0.9% (NS) 50 mL MINI-BAG 07-27 01:30: 00 07-27 01:40 :00 No 3.375g 3.375 g, IV Piggyback, ONCE, 1 dose, On Mon07/26/22 at 1930, Administer over 30 Minutes, 50 mL
Reas on for Anti-Infec tive: Documented Infection< br>Documen clay Infection Site: Skin / Soft Tissue
Duration of Therapy: Other (see Comments) [facility] HYDROcodone -acetaminop hen (NORCO 5) 5-325 mg tablet 1 tablet 07-27 01:30: 00 07-27 01:27 :00 No 1{tbl} 1 tablet, Oral, ONCE, 1 dose, On Mon07/26/22 at 1930, GIOVANNI [facility] amoxicillin -clavulanat e 875-125 mg per tablet 07-27 00:00: 00 08-07 05:59 :00 No [id number] 1{tbl} Take 1 tablet by mouth every 12 (twelve) hours for 10 days. [facility] traMADoL 50 mg tablet 07-27 00:00: 00 08-02 05:59 :00 No [id number] 50mg Take 1 tablet by mouth every 6 (six) hours as needed for Pain (scale 4-6) for up to 5 days. Indication s: acute pain [facility] HYDROcodone -acetaminop hen 10-325 mg tablet 07-27 00:00: 00 07-31 05:59 :00 No [id number] 1{tbl} Take 1 tablet by mouth every 6 (six) hours as needed for Pain (scale 7-10) for up to 3 days. Indication s: acute pain [facility] ondansetron (ZOFRAN) 4 mg tablet 07-27 00:00: 00 07-31 05:59 :00 No [id number] 4mg Take 1 tablet by mouth every 6 (six) hours for 3 days. [facility] No known medications 07-26 13:36: 04 No No known medication s [facility] norelgestro min-ethinyl estradiol (XULANE) 150-35 mcg/24 hr patch 3-19 00:00: 00 08-20 00:00 :00 No [id number] 1{patch } Apply 1 Patch to skin weekly. [facility] Vital Signs Vital Name Observation Time Observation Value Comments S federico Systolic blood pressure 2022-10-30 12:32:00 122 mm[Hg] [facility] Diastolic blood pressure 2022-10-30 12:32:00 66 mm[Hg] [facility] Heart rate 2022-10-30 12:32:00 97 /min [facility] Body temperature 2022-10-30 12:32:00 36.67 Cristy [facility] Respiratory rate 2022-10-30 12:32:00 18 /min [facility] Oxygen saturation in Arterial blood by Pulse oximetry 2022-10-30 12:32:00 98 /min [facility] Body height 2022-10-30 09:09:00 160 cm [facility] Body weight 2022-10-30 09:09:00 79.47 kg [facility] BMI 2022-10-30 09:09:00 31.04 kg/m2 [facility] Body temperature 2022-08-11 15:50:00 36.17 Cristy [facility] Body height 2022-08-11 15:50:00 154.9 cm [facility] Body weight 2022-08-11 15:50:00 76.159 kg [facility] BMI 2022-08-11 15:50:00 31.72 kg/m2 [facility] Systolic blood pressure 2022-07-28 13:00:00 110 mm[Hg] [facility] Diastolic blood pressure 2022-07-28 13:00:00 55 mm[Hg] [facility] Heart rate 2022-07-28 13:00:00 98 /min Un[facility] Body temperature 2022-07-28 13:00:00 36.78 Cristy [facility] Respiratory rate 2022-07-28 13:00:00 18 /min [facility] Oxygen saturation in Arterial blood by Pulse oximetry 2022-07-28 13:00:00 100 /min [facility] Body height 2022-07-27 11:28:00 162.6 cm [facility] Body weight 2022-07-27 11:28:00 77.6 kg [facility] BMI 2022-07-27 11:28:00 29.35 kg/m2 [facility] Systolic blood pressure 2022-07-27 17:36:00 109 mm[Hg] [facility] Diastolic blood pressure 2022-07-27 17:36:00 68 mm[Hg] [facility] Heart rate 2022-07-27 17:36:00 83 /min Unive [facility] Body temperature 2022-07-27 17:36:00 36.28 Cristy [facility] Respiratory rate 2022-07-27 17:36:00 21 /min [facility] Oxygen saturation in Arterial blood by Pulse oximetry 2022-07-27 17:36:00 99 /min [facility] Body height 2022-07-27 11:28:00 162.6 cm [facility] Body weight 2022-07-27 11:28:00 77.6 kg [facility] BMI 2022-07-27 11:28:00 29.35 kg/m2 [facility] Systolic blood pressure 2022-07-27 01:09:00 118 mm[Hg] [facility] Diastolic blood pressure 2022-07-27 01:09:00 73 mm[Hg] [facility] Heart rate 2022-07-27 01:09:00 91 /min Unive [facility] Body temperature 2022-07-27 01:09:00 37.5 Cristy [facility] Respiratory rate 2022-07-27 01:09:00 18 /min [facility] Oxygen saturation in Arterial blood by Pulse oximetry 2022-07-27 01:09:00 100 /min [facility] Body height 2022-07-26 19:30:00 162.6 cm [facility] Body weight 2022-07-26 19:30:00 77.565 kg [facility] BMI 2022-07-26 19:30:00 29.35 kg/m2 [facility] Systolic blood pressure 2021-08-20 19:06:00 105 mm[Hg] [facility] Diastolic blood pressure 2021-08-20 19:06:00 60 mm[Hg] [facility] Heart rate 2021-08-20 19:06:00 69 /min Unive [facility] Body temperature 2021-08-20 19:06:00 36.17 Cristy [facility] Respiratory rate 2021-08-20 19:06:00 16 /min [facility] Body height 2021-08-20 19:06:00 160 cm [facility] Body weight 2021-08-20 19:06:00 77.764 kg [facility] BMI 2021-08-20 19:06:00 30.37 kg/m2 [facility] Procedures Procedure Date / Time Performed Performing Clinician Source CONSENT/REFUSAL FOR DIAGNOSIS AND TREATMENT 2022-10-30 15:05:28 Doctor Unassigned, Stuart [facility] CT ABDOMEN PELVIS W CONTRAST 2022-10-30 07:28:39 Jad Murillo [facility] LIPASE 2022-10-30 05:59:00 Jad Murillo [facility] COMP. METABOLIC PANEL ([id number]) 2022-10-30 05:59:00 Jad Murillo [facility] CBC WITH DIFF 2022-10-30 05:59:00 Jad Murillo [facility] URINALYSIS 2022-10-30 05:59:00 Jad Murillo [facility] POCT TEST 2022-10-30 05:58:00 Jad Murillo [facility] NOTICE OF PRIVACY PRACTICES 2022-10-30 05:24:11 Doctor Unassigned, Stuart [facility] CONSENT/REFUSAL FOR DIAGNOSIS AND TREATMENT 2022-10-30 05:23:29 Doctor Unassigned, Stuart [facility] AUTHORIZATION FOR RELEASE OF PHI 2022-10-14 05:01:00 Doctor Unassigned, Stuart [facility] HAND DEBRIDEMENT 2022-07-27 18:59:00 Shantanu Guillory [facility] HAND DEBRIDEMENT 2022-07-27 18:59:00 Shantanu Guillory [facility] POCT TEST 2022-07-27 18:50:00 Braxton Ruiz [facility] POCT TEST 2022-07-27 18:50:00 Braxton Ruiz [facility] CREATININE 2022-07-27 05:48:00 Terry Jaeger [facility] CREATININE 2022-07-27 05:48:00 Terry Jaeger [facility] XR HAND 3+ VW RIGHT 2022-07-26 19:51:48 Niru Ayers [facility] Encounters Start Date/Time End Date/Time Encounter Type Admission Type Attending Clinicians Care Facility Care Department Encounter ID Source 2024-08-27 13:00:00 2024-08-27 13:00:00 Outpatient STEW COLVIN [facility] [id number] [facility] 2023-11-08 15:00:00 2023-11-08 15:00:00 Outpatient R YOSEF, ALMA [facility] [id number] [facility] 2022-12-08 15:37:57 2022-12-08 15:37:57 Outpatient SFA [facility] [id number] Marcellus Ivy 2022-12-06 15:11:04 2022-12-06 15:11:04 Outpatient [facility] [id number] Marcellus Ivy 2022-10-30 00:24:00 2022-10-30 08:55:00 Emergency Lidia, Jad Francois, Kiara Retana, Harvey Menard [facility] [id number] 350.1.13.10 4.2.7.2.686 [id number] [facility] 2022-10-30 00:24:00 2022-10-30 08:55:00 Outpatient HARVEY MERRILL [facility] [id number] [facility] 2022-10-14 00:00:00 2022-10-14 00:00:00 Orders Only Doctor Unassigned, Stuart [facility] 1.2.840.114 350.1.13.10 4.2.7.2.686 [id number] [facility] 2022-08-25 09:20:00 2022-08-25 09:20:00 Outpatient R MADHAVI LEES [facility] [id number] [facility] 2022-08-22 13:15:00 2022-08-22 13:15:00 Outpatient R KELSEY YBARRA [facility] [id number] [facility] 2022-08-22 13:15:00 2022-08-22 13:15:00 Outpatient R KELSEY YBARRA [facility] [id number] [facility] 2022-08-18 08:00:00 2022-08-18 08:00:00 Outpatient R [facility] [id number] [facility] 2022-08-11 09:20:00 2022-08-11 10:58:12 Outpatient R MADHAVI LEES [facility] [id number] [facility] 2022-08-11 09:20:00 2022-08-11 10:58:12 Office Visit Keshav Leesw [facility] 1.2840.114 350.1.13.10 4.2.7.2.686 [id number] [facility] 2022-07-29 00:00:00 2022-07-29 00:00:00 Transition of Care Lesvia Rowland [facility] 1.2.840.114 350.1.13.10 4.2.7.2.686 [id number] [facility] 2022-07-26 20:53:00 2022-07-28 14:02:00 Inpatient X SHANTANU GUILLORY [facility] SOR [id number] [facility] 2022-07-26 20:53:00 2022-07-28 14:02:00 Hospital En[facility] 1.2840.114 350.1.13.10 4.2.7.2.686 [id number] [facility] 2022-07-27 11:18:00 2022-07-27 13:27:00 Surgery Shantanu Guillory [facility] 1.2840.114 350.1.13.10 4.2.7.2.686 [id number] [facility] 2022-07-26 13:31:00 2022-07-26 19:39:00 Emergency X NIRU AYERS [facility] ERT [id number] [facility] 2022-07-26 13:31:00 2022-07-26 19:39:00 Emergency Niru Ayers S [facility] 1.2840.114 350.1.13.10 4.2.7.2.686 [id number] [facility] 2021-08-20 12:45:00 2021-08-20 13:56:34 Outpatient R KELSEY YBARRA [facility] [id number] [facility] 2021-08-20 12:45:00 2021-08-20 13:56:34 Office Visit Kelsey Ybarra [facility] CLINICAL LAB TECHNOLOGIST [facility] 1.0.114 350.1.13.10 4.2.7.2.686 [id number] [facility] 2021-08-20 12:45:00 2021-08-20 13:56:34 Outpatient R KELSEY YBARRA [facility] [id number] [facility] 2021-08-20 00:00:00 2021-08-20 00:00:00 Orders Only Doctor Unassigned, Stuart [facility] 1..114 350.1.13.10 4.2.7.2.686 [id number] [facility] 2020-10-13 00:00:00 2020-10-13 00:00:00 Patient Outreach Gavin Kessler [facility] 1.114 350.1.13.10 4.2.7.2.686 [id number] [facility] 2020-05-05 08:30:00 2020-05-05 08:30:00 Outpatient R PRAVIN LLOYD [facility] [id number] [facility] 2020-02-12 00:00:00 2020-02-12 00:00:00 Letter (Out) Valentine Cuellar [facility] 1..114 350.1.13.10 4.2.7.2.686 [id number] [facility] 2020-02-10 11:45:00 2020-02-10 11:45:00 Outpatient R ALISA VALENTINE [facility] [id number] [facility] 2020-02-10 11:45:00 2020-02-10 11:45:00 Outpatient R ALISA VALENTINE [facility] [id number] [facility] 2020-02-10 11:45:00 2020-02-10 11:45:00 Outpatient R VALENTINE CUELLAR [facility] [id number] [facility] 2020-01-16 15:00:00 2020-01-16 15:00:00 Outpatient R ALISA VALENITNE [facility] [id number] [facility] 2020-01-10 13:15:00 2020-01-10 13:15:00 Outpatient R JYOTIJERRYKELSEY [facility] [id number] [facility] 2019-10-10 13:38:58 2019-10-14 10:05:09 Office Visit Valentine Cuellar [facility] CLINICAL LAB TECHNOLOGIST [facility] & [facility]ILD [facility] 1.840.114 350.1.13.10 4.2.7.2.686 [id number] [facility] 2019-10-10 13:45:00 2019-10-10 13:45:00 Outpatient R VALENTINE CUELLAR [facility] [id number] [facility] 2019-10-10 00:00:00 2019-10-10 00:00:00 Orders Only Doctor Unassigned, Stuart [facility] 1.840.114 350.1.13.10 4.2.7.2.686 [id number] [facility] 2019-03-11 15:13:39 2019-03-11 15:27:14 Nurse Visit Visit, Ang-Rmchp Nurse Valentine Cuellar [facility] CLINICAL LAB TECHNOLOGIST [facility] & CHILD [facility] 1..840.114 350.1.13.10 4.2.7.2.686 [id number] [facility] 2019-02-28 00:00:00 2019-02-28 00:00:00 Telephone AlisaValentine Savana [facility] CLINICAL LAB TECHNOLOGIST [facility] 1.2.840.114 350.1.13.10 4.2.7.2.686 [id number] [facility] 2019-02-18 00:00:00 2019-02-18 00:00:00 Nurse Triage Shanta Stuart [facility] 1.2.840.114 350.1.13.10 4.2.7.2.686 [id number] [facility] Results Test Description Test Time Test Comments Results Result Co mments Source [facility] [id number] 19:05:00* Test Item Value Reference Range Interpretation Comme nts POCT PREG (test code = 1605) Negative On board controls acceptable with C Line (test code = 3574) Yes POCT PREG LOT # (test code = 3575) [id number] POCT PREG TEST DATE ( test code = 3576) 10/22/23 Lab Interpretation (test cod e = [id number]) Normal [facility] [id number] 19:05:00* Test Item Value Reference Range Interpretation Comme nts POCT PREG (test code = 1605) Negative On board controls acceptable with C Line (test code = 3574) Yes POCT PREG LOT # (test code = 3575) [id number] POCT PREG TEST DATE ( test code = 3576) 10/22/23 Lab Interpretation (test cod e = [id number]) [facility]* Test Item Value Reference Range Interpretation Comme nts CREATININE (test code = [id number]) 0.65 mg/dL 0.50-1.04 eGFR (test code = 7919255158) mL/min/1.73m2 PARISH (test code = PARISH) Association [...] or urine or abnormalities in imaging tests). [facility]2023-01-04 06:21:42* Test Item Value Reference Range Interpretation Comme nts CREATININE (test code = 2738756080) 0.65 mg/dL 0.50-1.04 eGFR (test code = [id number]) mL/min/1.73m2 PARISH (test code = PARISH) Association [...] or urine or abnormalities in imaging tests). [facility]"
[2024-10-14] MEDS ORDERED: KETOROLAC 30 MG/ML INJ ONE (07:09)
[2024-10-14] MEDS ORDERED: METOCLOPRAMIDE 5 MG TAB ONE (07:10)
--- NOTE | 2024-10-14 07:38 | RAD REPORT ---
EXAMINATION: CT HEAD WITHOUT CONTRAST CT CERVICAL SPINE WITHOUT CONTRAST CLINICAL INDICATION: Head and neck injury status post fall. Head and neck pain TECHNIQUE: Axial CT images from the skull base to the vertex without intravenous contrast. Axial CT i mages through the cervical spine were obtained without intravenous contrast. Sagittal and coronal reformatted images were created from the data set. Coronal and sagittal reformatted images were creat ed from the data set. One or more of the following dose reduction techniques were used: Automated exposure control, adjustment of the mA and/or kV according to patient size, and/or iterative reconstr uction. Unless otherwise specified, incidental findings do not require dedicated imaging follow-up. [id number]. Comparison: none FINDINGS: An intracranial bleed is not seen. Ventricles are normal in caliber. No significant hypodensity within the brain No extra-axial fluid collection. No fluid within the sinuses/mastoids No fracture or dislocation is seen involving the cervical spine. IMPRESSION: No acute intracranial abnormality noted A cervical fracture is not seen. If the patient continues to have symptoms to suggest acute [employer]/spinal pathology then MRI would be rec ommended
--- NOTE | 2024-10-14 08:02 | EDPHYS ---
Physician Documentation [facility] Name: Abdiel Allred Age: 24 yrs Sex: Female : 2000 Arrival Date: 10/14/2024 Time: 06:18 Bed 18 Private MD: ED Physician Felix Ling HPI: 10/14 07:07 This 24 yrs old Black Female presents to ER via Ambulatory with complaints of Head ec2 Injury Without LOC-Adult. 07:10 Patient arrives today for headache after several days. Patient reports that she had ec2 fallen off a horse several days ago. Patient reports that she been having a persistent headache, minimal improvement with Tylenol and ibuprofen. No anticoagulation, no daily chronic problems.. 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 - Infectious Disease History:: Denies. - Social history:: Smoking status: Reported history of juuling and/or vaping. ROS: 07:10 Constitutional: as per hpi ec2 Exam: 07:10 Constitutional: GEN: NAD Head: atraumatic Eyes: EOMI Ears: External ears are ec2 normal. CV: regular rate LUNGS: no respiratory distress ABD: non-distended SKIN: no evidence of rashes MSK: no evidence of trauma. Neuro: Cranial nerves II through XII intact, strength intact upper extremities, intact ambulation without issue Vital Signs: 06:34 BP 121 / 62; Pulse 68; Resp 16; Temp 98.3; Pulse Ox 100% ; Weight 71.21 kg; Height 4 vc1 ft. 11 in. ; Pain 10/10; 08:10 BP 118 / 64; Pulse 70; Resp 15 S; Pulse Ox 99% on R/A; kc6 06:34 Body Mass Index 31.71 (71.21 kg, 149.86 cm) vc1 06:34 Pain Scale: Adult vc1 MDM: 07:00 Medical Screening Exam initiated ec2 07:10 Data reviewed: vital signs, nurses notes. ED course: Patient arrives today for headache ec2 after falling from a horse. Examination is unrevealing. Will obtain CT scan of the head, treat the patient's symptoms and reassess. Suspect concussion. Doubt intracranial brain bleed or fracture.. 08:01 ED course: CT imaging negative. Will discharge home, suspect concussion symptoms. ec2 Return precautions given.. 10/14 06:41 Order name: CT Head C Spine; Complete Time: 08:01 vc1 Administered Medications: 07:14 Drug: Ketorolac IM 30 mg IM once Route: IM; Site: right deltoid; kc6 07:39 Follow up: Response: No adverse reaction kc6 07:14 Drug: MetoCLOPramide PO 10 mg PO once Route: PO; kc6 07:39 Follow up: Response: No adverse reaction kc6 Disposition Summary: 10/14/24 08:01 Discharge Ordered Notes: Location: Home ec2 Condition: Stable ec2 Diagnosis - Postconcussional syndrome ec2 Followup: ec2 - With: Private Physician - When: - Reason: Re-evaluation by your physician Discharge Instructions: - Discharge Summary Sheet ec2 - Post-Concussion Syndrome, [id number] ec2 Forms: - Medication Reconciliation Form ec2 - Antibiotic Education ec2 - Prescription Opioid Use ec2 - Patient Portal Instructions ec2 - Leadership Thank You Letter ec2 Prescriptions: - Compazine 10 mg Oral Tablet - take 1 tablet ORAL route every 8 hours As needed; 20 tablet; Refills: 0, ec2 Product Selection Permitted Signatures: Dispatcher [employer] Matilde Valles RN RN vc1 Kassidy Browning RN RN kc6 Felix Ling MD MD ec2 Corrections: (The following items were deleted from the chart) 06:41 06:41 Head C Spine MPR Wo [id number].RAD.BRZ ordered. EDMS EDMS
--- NOTE | 2024-10-14 08:02 | ER ---
Nurse's Notes [facility] Name: Abdiel Allred Age: 24 yrs Sex: Female : 2000 Arrival Date: 10/14/2024 Time: 06:18 Bed 18 Private MD: Diagnosis: Postconcussional syndrome Presentation: 10/14 06:34 Chief complaint: Patient states: fell off horse on and has had a headache ever vc1 since. Coronavirus screen: Client denies travel out of the [place] in the last 14 days. At this time, the client does not indicate any symptoms associated with coronavirus-19. Ebola Screen: Patient negative for fever greater than or equal to 101.5 degrees Fahrenheit, and additional compatible Ebola Virus Disease symptoms Patient denies exposure to infectious person. Patient denies travel to an Ebola-affected area in the 21 days before illness onset. No symptoms or risks identified at this time. Initial Sepsis Screen: Does the patient meet any 2 criteria? No. Patient's initial sepsis screen is negative. Does the patient have a suspected source of infection? No. Patient's initial sepsis screen is negative. Risk Assessment: Do you want to hurt yourself or someone else? Patient reports no desire to harm self or others. Onset of symptoms was October 10, 2024. 06:34 Method Of Arrival: Ambulatory vc1 06:34 Acuity: BELA 3 vc1 Triage Assessment: 06:37 General: Appears in no apparent distress. uncomfortable, slender, well groomed, vc1 Behavior is calm, cooperative, appropriate for age. Pain: Complains of pain in forehead, right eye, left eye, right religion and left religion Pain currently is 10 out of 10 on a pain scale. Also complains of nausea, photophobia. EENT: No deficits noted. No signs and/or symptoms were reported regarding the EENT system. Neuro: Level of Consciousness is awake, alert, obeys commands, Oriented to person, place, time, situation, Appropriate for age Reports headache frontal area, that is the "worst ever", photophobia. Cardiovascular: Capillary refill < 3 seconds Patient's skin is warm and dry. Respiratory: Airway is patent Respiratory effort is even, unlabored, Respiratory pattern is regular, symmetrical, Breath sounds are clear bilaterally. Derm: Skin is intact, is healthy with good turgor, Skin is dry, Skin is normal, Skin temperature is warm. Musculoskeletal: Circulation, motion, and sensation intact. Range of motion: intact in all extremities. 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 - Infectious Disease History:: Denies. - Social history:: Smoking status: Reported history of juuling and/or vaping. Screenin:37 Abuse screen: Denies threats or abuse. Nutritional screening: No deficits noted. vc1 Tuberculosis screening: No symptoms or risk factors identified. 07:14 [facility] ED Fall Risk Assessment (Adult) History of falling in the last 3 months, kc6 including since admission Yes- single mechanical fall (1 pt) Confusion or Disorientation No (0 pts) Intoxicated or Sedated No (0 pts) Impaired Gait No (0 pts) Mobility Assist Device Used No (0 pt) Altered Elimination No (0 pt) Score/Fall Risk Level 0 - 2 = Low Risk Oriented to surroundings, Maintained a safe environment, Educated pt \\T\\ family on fall prevention, incl call for assistance when getting out of bed. Assessment: 07:15 General: Appears in no apparent distress. comfortable, well groomed, well developed, kc6 Behavior is calm, cooperative, appropriate for age. Neuro: Level of Consciousness is awake, alert, obeys commands, Oriented to person, place, time, situation, Appropriate for age Reports headache. Cardiovascular: Capillary refill < 3 seconds. Respiratory: Airway is patent Trachea midline Respiratory effort is even, unlabored, Respiratory pattern is regular, symmetrical. GI: Reports nausea, Patient currently denies abdominal pain, diarrhea, vomiting. : No signs and/or symptoms were reported regarding the genitourinary system. EENT: Reports photophobia. Derm: No signs and/or symptoms reported regarding the dermatologic system. Skin is intact, is healthy with good turgor, Skin is pink, warm \\T\\ dry. Musculoskeletal: No signs and/or symptoms reported regarding the musculoskeletal system. Circulation, motion, and sensation intact. Range of motion: intact in all extremities. 08:10 Reassessment: Patient appears in no apparent distress at this time. No changes from kc6 previously documented assessment. Patient and/or family updated on plan of care and expected duration. Pain level reassessed. Patient is alert, oriented x 3, equal unlabored respirations, skin warm/dry/pink. Vital Signs: 06:34 BP 121 / 62; Pulse 68; Resp 16; Temp 98.3; Pulse Ox 100% ; Weight 71.21 kg; Height 4 vc1 ft. 11 in. ; Pain 10/10; 08:10 BP 118 / 64; Pulse 70; Resp 15 S; Pulse Ox 99% on R/A; kc6 06:34 Body Mass Index 31.71 (71.21 kg, 149.86 cm) vc1 06:34 Pain Scale: Adult vc1 ED Course: 06:19 Patient arrived in ED. jj6 06:36 Triage completed. vc1 06:37 Arm band placed on right wrist. vc1 07:00 Felix Ling MD is Attending Physician. ec2 07:03 CT Head C Spine In Process Unspecified. EDMS 07:06 Kassidy Browning, JADA is Primary Nurse. kc6 07:07 Felix Ling MD is Attending Physician. ec2 07:14 Patient has correct armband on for positive identification. Bed in low position. Call kc6 light in reach. Side rails up X 1. Pulse ox on. NIBP on. Door closed. Noise minimized. Lights dimmed. Warm blanket given. Pillow given. PO fluids given. Verbal reassurance given. 07:15 No provider procedures requiring assistance completed. Patient maintains SpO2 kc6 saturation greater than 95% on room air. 08:11 Patient did not have IV access during this emergency room visit. kc6 Administered Medications: 07:14 Drug: Ketorolac IM 30 mg IM once Route: IM; Site: right deltoid; kc6 07:39 Follow up: Response: No adverse reaction kc6 07:14 Drug: MetoCLOPramide PO 10 mg PO once Route: PO; kc6 07:39 Follow up: Response: No adverse reaction kc6 Medication: 08:11 VIS not applicable for this client. kc6 Outcome: 08:01 Discharge ordered by . ec2 08:10 Discharged to home ambulatory, kc6 08:10 Condition: good 08:10 Discharge instructions given to patient, Instructed on discharge instructions, follow up and referral plans. medication usage, Demonstrated understanding of instructions, follow-up care, medications, Prescriptions given X 1, 08:11 Patient left the ED. kc6 Signatures: Dispatcher [employer] EDNC Rosario Rogers jj6 Matilde Joe RN RN vc1 Kassidy Browning RN RN kc6 Felix Ling MD MD ec2 Corrections: (The following items were deleted from the chart) 08:11 08:10 Discharge instructions given to patient, Instructed on discharge instructions, kc6 follow up and referral plans. medication usage, Demonstrated understanding of instructions, follow-up care, medications, Prescriptions given X 2, kc6
[2024-10-14 08:16] VITALS: TEMP 98.3
[2024-10-14 08:18] VITALS: BP 118/64; O2SAT 99
== END 2024-10-14 08:11 | disposition home or self-care (01) ==
LOC: ER 06:18
DX: R51.9 Headache, unspecified (principal); F07.81 Postconcussional syndrome
CPT/HCPCS: 70450; 72125; 96372; 99284